=== PATIENT | male | born 1985 | race African-American/Black ===

== ENCOUNTER 2016-11-30 21:12 | Emergency (ER) | payer OTHER ==
[2016-11-30 21:19] VITALS: RESP 22
[2016-11-30] MEDS ORDERED: ACETAMINOPHEN TAB 500 MG TAB PO STA (21:29)
[2016-11-30] MEDS ORDERED: IBUPROFEN 600 MG TAB PO STA (21:29)
[2016-11-30] MEDS ORDERED: IPRATROPIUM-ALBUTEROL 3 ML NEB INHALATION STA (21:29)
--- NOTE | 2016-11-30 21:31 | ED ---
General Adult HPI - General Chief complaint: Upper Respiratory Infection Stated complaint: NILTON,cough Time Seen by Provider: 11/30/16 21:15 Source: patient, RN notes reviewed Mode of arrival: ambulatory Limitations: no limitations - History of Present Illness Initial comments: This is a 31-year-old male who presents emergency Department complaining of body aches everywhere. Patient states she's also had a fever but not taken any Motrin or Tylenol. Patient states she's had this for 2 days. Patient states he also has had a cough but he is a smoker. Patient denies any shortness of breath or difficulty breathing. Patient denies any chills. Patient denies any chest pain or palpitations. Patient denies abdominal pain patient denies nausea or vomiting. Patient states had one episode of diarrhea yesterday but none today and is having normal bowel movements today. Patient has a mild headache but there is no numbness or weakness eyes any lightheadedness dizziness or near-syncopal episode. Patient states he did not get a flu shot this year. - Related Data Home Medications Medication Instructions Recorded Confirmed Beclomethasone Dipropionate [Qvar 2 puff INHALATION RT-BID 07/25/16 11/30/16 80 mcg] Albuterol Inhaler [Ventolin Hfa 1 - 2 puff INHALATION RT-Q6H PRN 09/08/16 Inhaler] Ipratropium-Albuterol Nebulize 3 ml INHALATION RT-Q6H PRN 09/08/16 11/30/16 [Duoneb 0.5 mg-3 mg/3 ml Soln] Flunisolide [Aerospan] 1 puff INHALATION RT-DAILY 11/30/16 11/30/16 Fluticasone/Salmeterol [Advair 1 puff INHALATION RT-BID 11/30/16 11/30/16 250-50 Diskus] Previous Rx's Medication Instructions Recorded Albuterol Inhaler [Ventolin Hfa 1 - 2 puff INHALATION Q6HR PRN #2 11/30/16 Inhaler] puff Azithromycin [Zithromax Tri-Jesus] 500 mg PO DAILY #3 tab 11/30/16 Allergies Allergy/AdvReac Type Severity Reaction Status Date / Time latex Allergy Swelling Verified 11/30/16 21:38 Sulfa (Sulfonamide Allergy Unknown Verified 11/30/16 21:38 Antibiotics) Review of Systems ROS Statement: Those systems with pertinent positive or pertinent negative responses have been documented in the HPI. ROS Other: All systems not noted in ROS Statement are negative. 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 Patient is nontoxic and well- hydrated and is in mild distress. ENT: Neck is soft and supple. No significant lymphadenopathy is noted. Oropharynx is clear. Moist mucous membranes. Neck has full range of motion without eliciting any pain. EYES: The sclera were anicteric and conjunctiva were pink and moist. Extraocular movements were intact and pupils were equal round and reactive to light. Eyelids were unremarkable. PULMONARY: Unlabored respirations. Good breath sounds bilaterally. Patient has expiratory wheezing. CARDIOVASCULAR: There is a regular rate and rhythm without any murmurs gallops or rubs. ABDOMEN: Soft and nontender with normal bowel sounds. No palpable organomegaly was noted. There is no palpable pulsatile mass. SKIN: Skin is clear with no lesions or rashes and otherwise unremarkable. NEUROLOGIC: Patient is alert and oriented x3. Cranial nerves II through XII are grossly intact. Motor and sensory are also intact. Normal speech, volume and content. Symmetrical smile. MUSCULOSKELETAL: Normal extremities with adequate strength and full range of motion. No lower extremity swelling or edema. No calf tenderness. LYMPHATICS: No significant lymphadenopathy is noted PSYCHIATRIC: Normal psychiatric evaluation. Normal interpersonal interactions appears functionally intact in deals appropriately with others. No signs of depression. No signs of anxiety. Limitations: no limitations Course Vital Signs 11/30/16 11/30/16 11/30/16 21:15 21:53 22:11 Temperature 101 F H Pulse Rate 122 H 120 H 118 H Respiratory 22 Rate Blood Pressure 136/74 O2 Sat by Pulse 98 Oximetry Medical Decision Making - Medical Decision Making I went back into the room and reexamined the patient he no longer was wheezing and felt as though he was breathing better. Patient states he aches and just started to subside. I gave the patient a gram or Rocephin IM. Chest x-ray showed a right perihilar infiltrate. - Lab Data Lab Results 11/30/16 Range/Units 21:29 Influenza Type A RNA Not Detected (Not Detectd) Influenza Type B (PCR) Not Detected (Not Detectd) Disposition Clinical Impression: Pneumonia Disposition: HOME SELF-CARE Condition: Good Instructions: Bacterial Pneumonia (ED) Additional Instructions: Patient should stop smoking. Patient should take Zithromax as prescribed. Patient should take albuterol inhaler as prescribed. Prescriptions: Albuterol Inhaler [Ventolin Hfa Inhaler] 1 - 2 puff INHALATION Q6HR PRN #2 puff PRN Reason: Difficulty breathing Azithromycin [Zithromax Tri-Jesus] 500 mg PO DAILY #3 tab Referrals: Lincoln Madden Jr, DO [Primary Care Provider] - 1-2 days Time of Disposition: 22:26
--- NOTE | 2016-11-30 22:21 | XR ---
EXAMINATION TYPE: XR chest 2V DATE OF EXAM: 11/30/2016 10:15 PM COMPARISON: 09/08/2016 HISTORY: Difficulty breathing, weakness, pain everywhere. TECHNIQUE: Frontal and lateral views of the chest are obtained. FINDINGS: There is increased opacity in the right infrahilar area when compared to previous study and is suspic ious for active infiltrates or pneumonia changes. There is peribronchial cuffing bilaterally with possible chronic bronchitis changes. No pneumothorax or pleural effusion is noted. The cardiac silhouette size is within normal limits. The osseous structures are intact. IMPRESSION: 1. Suspected mild active infiltrates in the right infrahilar area. 2. Chronic bronchitis changes.
[2016-11-30] MEDS ORDERED: cefTRIAXone 1,000 MG VIAL (IM USE) IM STA (22:25)
[2016-11-30] MEDS ORDERED: IBUPROFEN 600 MG STARTER PACK 4 TAB BTL PO STA (22:27)
[2016-11-30 22:43] VITALS: BP 141/80; PULSE 105; TEMP 99.7
== END 2016-11-30 22:43 | disposition home or self-care (01) ==
LOC: EC 21:12
DX: J15.9 Unspecified bacterial pneumonia (principal); R19.7 Diarrhea, unspecified; R51 Headache; J45.909 Unspecified asthma, uncomplicated; F17.200 Nicotine dependence, unspecified, uncomplicated; Z79.51 Long term (current) use of inhaled steroids; Z79.899 Other long term (current) drug therapy; Z91.040 Latex allergy status; Z88.2 Allergy status to sulfonamides
CPT/HCPCS: 94640; 87502; 71020; 99284; 96372; J0696

== ENCOUNTER 2016-12-01 23:48 | Emergency (ER) | payer OTHER ==
--- NOTE | 2016-12-02 00:09 | ED ---
General Adult HPI - General Chief complaint: Fever Stated complaint: FEVER Time Seen by Provider: 12/01/16 23:54 Source: patient, RN notes reviewed Mode of arrival: EMS Limitations: no limitations - History of Present Illness Initial comments: This is a 31-year-old male presents with body aches. Patient was diagnosed yesterday in the [facility] with pneumonia. Patient was put on azithromycin for this. Patient has been taking the antibiotic as prescribed. Patient has been taking Tylenol and Motrin for fever. Patient states he is still having body aches so he wanted to be seen. Patient states he feels short of breath. Patient admits to being a smoker. Patient denies any chest pain, abdominal pain, nausea/ vomiting/diarrhea, back pain, numbness, tingling, hematuria, headache, or visual changes, or any other complaints. - Related Data Home Medications Medication Instructions Recorded Confirmed Beclomethasone Dipropionate [Qvar 2 puff INHALATION RT-BID 07/25/16 12/01/16 80 mcg] Ipratropium-Albuterol Nebulize 3 ml INHALATION RT-Q6H PRN 09/08/16 12/01/16 [Duoneb 0.5 mg-3 mg/3 ml Soln] Flunisolide [Aerospan] 1 puff INHALATION RT-DAILY 11/30/16 12/01/16 Fluticasone/Salmeterol [Advair 1 puff INHALATION RT-BID 11/30/16 12/01/16 250-50 Diskus] Previous Rx's Medication Instructions Recorded Albuterol Inhaler [Ventolin Hfa 1 - 2 puff INHALATION Q6HR PRN #2 11/30/16 Inhaler] puff Azithromycin [Zithromax Tri-Jesus] 500 mg PO DAILY #3 tab 11/30/16 Acetaminophen Tab [Tylenol Tab] 500 mg PO Q6H 7 Days 12/02/16 Ibuprofen [Motrin] 400 mg PO Q4H 7 Days 12/02/16 predniSONE 20 mg PO DAILY 3 Days 12/02/16 Allergies Allergy/AdvReac Type Severity Reaction Status Date / Time latex Allergy Swelling Verified 12/01/16 23:54 methylphenidate Allergy Unknown Verified 12/01/16 23:54 [From Ritalin] Sulfa (Sulfonamide Allergy Unknown Verified 12/01/16 23:54 Antibiotics) Review of Systems ROS Statement: Those systems with pertinent positive or pertinent negative responses have been documented in the HPI. ROS Other: All systems not noted in ROS Statement are negative. 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 Eye: Pupils are equal, round and reactive to light, extra-ocular movements are intact. No nystagmus. There is normal conjunctiva bilaterally. No signs of icterus. Ears: TMs pink and pearly with intact cone of light bilaterally. Normal external ear canals Nose: Nasal turbinates pink and moist Mouth and throat: There are moist mucous membranes and no oral lesions. Neck: The neck is supple, there is no tenderness or JVD. No meningismus. Cardiovascular: There is a regular rate and rhythm. No murmur, rub or gallop is appreciated. Respiratory: Lungs with wheezes present bilaterally, respirations are non- labored, breath sounds are equal. No stridor, rales, or rhonchi. Gastrointestinal: Soft, non-distended, non-tender abdomen without masses or organomegaly noted. There is no rebound or guarding present. Bowel sounds are unremarkable. Musculoskeletal: Normal ROM, no tenderness. Strength 5/5. Sensation intact. Radial Pulses equal bilaterally 2+. Neurological: A&O x 3. CN II-XII intact, There are no obvious motor or sensory deficits. Coordination appears grossly intact. Speech is normal. Skin: Skin is warm and dry and no rashes or lesions are noted. Psychiatric: Cooperative, appropriate mood & affect, normal judgment. Limitations: no limitations Course Vital Signs 12/01/16 12/02/16 12/02/16 23:51 00:21 00:31 Temperature 103.2 F H Pulse Rate 117 H 112 H 104 H Respiratory 18 Rate Blood Pressure 125/58 O2 Sat by Pulse 98 Oximetry 12/02/16 01:04 Temperature 102.1 F H Pulse Rate 90 Respiratory 16 Rate Blood Pressure 120/80 O2 Sat by Pulse 95 Oximetry Medical Decision Making - Medical Decision Making This is a 31-year-old male who presents with body aches after being diagnosed with pneumonia yesterday. Patient is currently on antibiotics for this. Patient has been taking Tylenol and/or Motrin. On physical exam Lungs with wheezes present bilaterally, respirations are non-labored, breath sounds are equal. No stridor, rales, or rhonchi. Patient has a fever today in the [facility]. Patient will be given a DuoNeb treatment and a dose of Tylenol in the [facility] today. Patient states he feels that he can breathe much better after his breathing treatments. Lung sounds were clear after his breathing treatment bilaterally. I rechecked the patient's temperature was decreased to 101.9. I discussed with patient the importance of taking Tylenol and Motrin to control fever and pain symptoms. Discussed the patient will be sent home on course of steroids. Patient states he has plenty of albuterol treatments at home. Patient was given a dose of Rocephin before discharge. I discussed the patient should follow-up with his primary care physician tomorrow or return to the [facility] for any worsening symptoms or for any further concerns. Patient was receptive to this and patient will be discharged home. Patient was given a prescription for Tylenol and Motrin. Patient will be discharged home. Disposition Clinical Impression: Body aches, Pneumonia Disposition: HOME SELF-CARE Condition: Good Instructions: Community Acquired Pneumonia (ED) Additional Instructions: Please continue and finish the entire course of antibiotics. Please use steroid as prescribed. Please continue Tylenol and/or Motrin every 4-6 hours for pain and fever. Please follow-up with your primary care physician tomorrow or return to the [facility] for any worsening symptoms or for any further concerns. Prescriptions: Acetaminophen Tab [Tylenol Tab] 500 mg PO Q6H 7 Days Ibuprofen [Motrin] 400 mg PO Q4H 7 Days predniSONE 20 mg PO DAILY 3 Days Referrals: Lincoln Madden Jr, DO [Primary Care Provider] - 1-2 days
[2016-12-02] MEDS: ACETAMINOPHEN TAB 500 MG TAB PO STA (00:12)
[2016-12-02] MEDS: SODIUM CHLORIDE 0.9% 500 ML IV ONE (00:16)
[2016-12-02] MEDS: IPRATROPIUM-ALBUTEROL 3 ML NEB INHALATION STA (00:21)
[2016-12-02 01:04] VITALS: BP 120/80; PULSE 90; RESP 16; TEMP 102.1
[2016-12-02] MEDS: MORPHINE SULFATE 2 MG/ML SYRINGE IV STA (01:21)
== END 2016-12-02 01:38 | disposition home or self-care (01) ==
LOC: EC 23:48
DX: J18.9 Pneumonia, unspecified organism (principal); Z79.51 Long term (current) use of inhaled steroids; Z91.040 Latex allergy status; Z88.2 Allergy status to sulfonamides; Z88.8 Allergy status to other drugs, medicaments and biological substances; F17.200 Nicotine dependence, unspecified, uncomplicated; J45.909 Unspecified asthma, uncomplicated
CPT/HCPCS: 94640; 96361; 96365; 96375; 99284

== ENCOUNTER 2016-12-09 09:40 | Emergency (ER) | payer OTHER ==
[2016-12-09] MEDS ORDERED: methylPREDNISolone SOD SUCCI 125 MG/2 ML VIAL IV STA (09:41)
[2016-12-09] MEDS ORDERED: MAGNESIUM SULFATE-D5W PMX 1 GM in DEXTROSE/WATER 1 100ML.BAG IVPB STA (09:41)
[2016-12-09] MEDS ORDERED: SODIUM CHLORIDE 0.9% 1,000 ML IV STA (09:41)
--- NOTE | 2016-12-09 09:45 | ED ---
SOB HPI - General Stated Complaint: Difficulty Breathing Time Seen by Provider: 12/09/16 09:40 Source: patient, EMS, RN notes reviewed Mode of arrival: EMS - History of Present Illness Initial Comments: This is a 31-year-old male with a history of smoking and asthma but no other medical problems who was apparently cleaning using bleach and ammonia prior to admission he became very short of breath EMS was called. He was given an updraft in route but still remains very dyspneic. He denies any overt chest pain fevers chills or sweats is very short of breath at this time he was partially decond by paramedics. MD Complaint: shortness of breath, cough - Related Data Home Medications Medication Instructions Recorded Confirmed Beclomethasone Dipropionate [Qvar 2 puff INHALATION RT-BID 07/25/16 12/09/16 80 mcg] Ipratropium-Albuterol Nebulize 3 ml INHALATION RT-Q6H PRN 09/08/16 12/09/16 [Duoneb 0.5 mg-3 mg/3 ml Soln] Flunisolide [Aerospan] 1 puff INHALATION RT-DAILY 11/30/16 12/09/16 Fluticasone/Salmeterol [Advair 1 puff INHALATION RT-BID 11/30/16 12/09/16 250-50 Diskus] Previous Rx's Medication Instructions Recorded Albuterol Inhaler [Ventolin Hfa 1 - 2 puff INHALATION Q6HR PRN #2 11/30/16 Inhaler] puff Acetaminophen Tab [Tylenol Tab] 500 mg PO Q6H 7 Days 12/02/16 Ibuprofen [Motrin] 400 mg PO Q4H 7 Days 12/02/16 Azithromycin [Zithromax Z-pack] 250 mg PO DIRECTED #6 tab 12/09/16 Ipratropium-Albuterol Nebulize 3 ml INHALATION QID #120 neb 12/09/16 [Duoneb 0.5 mg-3 mg/3 ml Soln] Ipratropium/Albuterol Sulfate 1 puff INHALATION QID #1 inhaler 12/09/16 [Combivent Respimat Inhaler] predniSONE 20 mg PO BID #10 tab 12/09/16 Allergies Allergy/AdvReac Type Severity Reaction Status Date / Time latex Allergy Swelling Verified 12/09/16 09:59 methylphenidate Allergy Unknown Verified 12/09/16 09:59 [From Ritalin] Sulfa (Sulfonamide Allergy Unknown Verified 12/09/16 09:59 Antibiotics) Review of Systems ROS Statement: Those systems with pertinent positive or pertinent negative responses have been documented in the HPI. ROS Other: All systems not noted in ROS Statement are negative. Past Medical History Past Medical History: Asthma Additional Past Medical History / Comment(s): multiple personality disorder History of Any Multi-Drug Resistant Organisms: None Reported Past Surgical History: Orthopedic Surgery Past Psychological History: ADD/ADHD, Anxiety, Bipolar, Schizoaffective Disorder Smoking Status: Current every day smoker Past Alcohol Use History: Occasional Past Drug Use History: Marijuana General Exam General appearance: alert, anxious, in distress Head exam: Present: atraumatic, normocephalic, normal inspection Eye exam: Present: normal appearance, PERRL, EOMI. Absent: scleral icterus, conjunctival injection, periorbital swelling ENT exam: Present: mucous membranes dry Neck exam: Present: normal inspection. Absent: tenderness, meningismus, lymphadenopathy Respiratory exam: Present: wheezes, accessory muscle use, decreased breath sounds. Absent: respiratory distress, rales, rhonchi, stridor Cardiovascular Exam: Present: normal rhythm, tachycardia, normal heart sounds. Absent: systolic murmur, diastolic murmur, rubs, gallop, clicks GI/Abdominal exam: Present: soft, normal bowel sounds. Absent: distended, tenderness, guarding, rebound, rigid Extremities exam: Present: normal inspection, full ROM, normal capillary refill. Absent: tenderness, pedal edema, joint swelling, calf tenderness Back exam: Present: normal inspection Neurological exam: Present: alert, oriented X3, CN II-XII intact Psychiatric exam: Present: normal affect, normal mood Skin exam: Present: warm, dry, intact, normal color. Absent: rash Course Vital Signs 12/09/16 12/09/16 12/09/16 09:50 10:02 10:05 Temperature 97.8 F Pulse Rate 85 87 90 Respiratory 26 H 28 H Rate Blood Pressure 145/64 O2 Sat by Pulse 98 Oximetry 12/09/16 12/09/16 12/09/16 10:20 10:45 10:58 Temperature Pulse Rate 90 90 91 Respiratory 20 Rate Blood Pressure 138/70 O2 Sat by Pulse 98 Oximetry 12/09/16 12/09/16 11:40 12:03 Temperature Pulse Rate 90 81 Respiratory 18 Rate Blood Pressure 127/69 O2 Sat by Pulse Oximetry - Reevaluation(s) Reevaluation #1: 12/09/16 11:02 Patient states that he is feeling much improved the continuous nebulizers was just discontinued the patient is however still wheezing somewhat. He does state this is been going on for several days like this however. A repeat unit dose DuoNeb has been ordered. Chest x-ray is pending. Reevaluation #2: 12/09/16 12:04 Patient is feeling improved he is still pending a repeat updraft. He states he just finished antibiotics for a pneumonia Reevaluation #3: 12/09/16 12:07 She did discuss the risks of smoking and smoke cessation and the benefits thereof. This conversation lasted about 3.5 minutes. Medical Decision Making - Medical Decision Making I did discuss the findings with the patient is feeling much improved he states that he ran out of his nebulizer/DuoNeb medication as well as an inhaler due to insurance difficulty. I will rewrite for this for him. We discharged on oral steroids he'll be given an antibiotic to be taken if symptoms return. - Lab Data Result diagrams: 12/09/16 09:50 12/09/16 09:50 Lab Results 12/09/16 12/09/16 12/09/16 Range/Units 09:50 09:50 09:50 WBC 12.0 H (3.8-10.6) k/uL RBC 5.11 (4.30-5.90) m/uL Hgb 15.8 (13.0-17.5) gm/dL Hct 47.1 (39.0-53.0) % MCV 92.2 (80.0-100.0) fL MCH 30.9 (25.0-35.0) pg MCHC 33.6 (31.0-37.0) g/dL RDW 13.5 (11.5-15.5) % Plt Count 402 (150-450) k/uL Neutrophils % 61 % Lymphocytes % 27 % Monocytes % 7 % Eosinophils % 2 % Basophils % 1 % Neutrophils # 7.3 (1.3-7.7) k/uL Lymphocytes # 3.2 (1.0-4.8) k/uL Monocytes # 0.8 (0-1.0) k/uL Eosinophils # 0.3 (0-0.7) k/uL Basophils # 0.1 (0-0.2) k/uL PT (9.0-12.0) sec INR (<1.1) APTT (22.0-30.0) sec Sodium 144 (137-145) mmol/L Potassium 4.1 (3.5-5.1) mmol/L Chloride 107 (98-107) mmol/L Carbon Dioxide 27 (22-30) mmol/L Anion Gap 10 mmol/L BUN 14 (9-20) mg/dL Creatinine 0.90 (0.66-1.25) mg/dL Est GFR (MDRD) Af Amer >60 (>60 ml/min/1.73 sqM) Est GFR (MDRD) Non-Af >60 (>60 ml/min/1.73 sqM) Glucose 90 (74-99) mg/dL Calcium 9.1 (8.4-10.2) mg/dL Magnesium 2.1 (1.6-2.3) mg/dL Total Bilirubin 0.6 (0.2-1.3) mg/dL AST 52 (17-59) U/L ALT 68 (21-72) U/L Alkaline Phosphatase 51 (38-126) U/L Total Creatine Kinase 430 H (55-170) U/L CK-MB (CK-2) 3.8 H* (0.0-2.4) ng/mL CK-MB (CK-2) Rel Index 0.9 Troponin I <0.012 (0.000-0.034) ng/mL NT-Pro-B Natriuret Pep pg/mL Total Protein 7.9 (6.3-8.2) g/dL Albumin 4.5 (3.5-5.0) g/dL 12/09/16 12/09/16 Range/Units 09:50 09:50 WBC (3.8-10.6) k/uL RBC (4.30-5.90) m/uL Hgb (13.0-17.5) gm/dL Hct (39.0-53.0) % MCV (80.0-100.0) fL MCH (25.0-35.0) pg MCHC (31.0-37.0) g/dL RDW (11.5-15.5) % Plt Count (150-450) k/uL Neutrophils % % Lymphocytes % % Monocytes % % Eosinophils % % Basophils % % Neutrophils # (1.3-7.7) k/uL Lymphocytes # (1.0-4.8) k/uL Monocytes # (0-1.0) k/uL Eosinophils # (0-0.7) k/uL Basophils # (0-0.2) k/uL PT 10.8 (9.0-12.0) sec INR 1.1 (<1.1) APTT 20.1 L (22.0-30.0) sec Sodium (137-145) mmol/L Potassium (3.5-5.1) mmol/L Chloride (98-107) mmol/L Carbon Dioxide (22-30) mmol/L Anion Gap mmol/L BUN (9-20) mg/dL Creatinine (0.66-1.25) mg/dL Est GFR (MDRD) Af Amer (>60 ml/min/1.73 sqM) Est GFR (MDRD) Non-Af (>60 ml/min/1.73 sqM) Glucose (74-99) mg/dL Calcium (8.4-10.2) mg/dL Magnesium (1.6-2.3) mg/dL Total Bilirubin (0.2-1.3) mg/dL AST (17-59) U/L ALT (21-72) U/L Alkaline Phosphatase (38-126) U/L Total Creatine Kinase (55-170) U/L CK-MB (CK-2) (0.0-2.4) ng/mL CK-MB (CK-2) Rel Index Troponin I (0.000-0.034) ng/mL NT-Pro-B Natriuret Pep 117 pg/mL Total Protein (6.3-8.2) g/dL Albumin (3.5-5.0) g/dL - EKG Data -: EKG Interpreted by Me EKG shows normal: sinus rhythm (Sinus rhythm with a rate of 73. Interval 180 QRS duration 1:30 QT/QTC of 376/[address]-T wave changes some artifact is present) - Radiology Data Radiology results: report reviewed (I did review the imaging and report is evidence of a right perihilar infiltrate), image reviewed Disposition Clinical Impression: Acute bronchospasm, Asthma exacerbation, Inhalation of cleaning agent, Smoking Disposition: HOME SELF-CARE Condition: Good Instructions: Bronchospasm (ED), Asthma (ED), Pneumonia (ED) Prescriptions: Azithromycin [Zithromax Z-pack] 250 mg PO DIRECTED #6 tab Ipratropium-Albuterol Nebulize [Duoneb 0.5 mg-3 mg/3 ml Soln] 3 ml INHALATION QID #120 neb Ipratropium/Albuterol Sulfate [Combivent Respimat Inhaler] 1 puff INHALATION QID #1 inhaler predniSONE 20 mg PO BID #10 tab
[2016-12-09] MEDS ORDERED: ALBUTEROL NEBULIZED 2.5 MG/3 ML INHALATION STA (09:48)
[2016-12-09] MEDS ORDERED: IPRATROPIUM 0.5 MG/2.5 ML NEBU INHALATION STA (09:48)
[2016-12-09 10:19] LABS: Basophils # (A) 0.1 k/uL (0-0.2); Basophils % (A) 1 %; CH 31.3; CHCM 34.1; Eosinophils # (A) 0.3 k/uL (0-0.7); Eosinophils % (A) 2 %; HCT 47.1 % (39.0-53.0); HDW 2.77; HGB 15.8 gm/dL (13.0-17.5); Luc # (Auto) 0.31; Luc % (Auto) 3; Lymphocytes # (A) 3.2 k/uL (1.0-4.8); Lymphocytes % (A) 27 %; MCH 30.9 pg (25.0-35.0); MCHC 33.6 g/dL (31.0-37.0); MCV 92.2 fL (80.0-100.0); Mean Platelet Volume 7.9; Monocytes # (A) 0.8 k/uL (0-1.0); Monocytes % (A) 7 %; Neutrophils # (A) 7.3 k/uL (1.3-7.7); Neutrophils % (A) 61 %; RBC 5.11 m/uL (4.30-5.90); RDW 13.5 % (11.5-15.5); WBC (Perox) 11.84
[2016-12-09 10:31] LABS: Creatine Kinase 430 U/L (55-170)
[2016-12-09 10:33] LABS: ALT 68 U/L (21-72); AST 52 U/L (17-59); Alkaline Phosphatase 51 U/L (38-126); Anion Gap 10 mmol/L; Blood Urea Nitrogen 14 mg/dL (9-20); Calcium 9.1 mg/dL (8.4-10.2); Carbon Dioxide 27 mmol/L (22-30); Chloride 107 mmol/L (98-107); Glucose 90 mg/dL (74-99); Magnesium 2.1 mg/dL (1.6-2.3); Non-African American GFR(MDRD) >60 (>60 ml/min/1.73 sqM); Sodium 144 mmol/L (137-145); Total Bilirubin 0.6 mg/dL (0.2-1.3); Total Protein 7.9 g/dL (6.3-8.2)
[2016-12-09 10:36] LABS: INR 1.1 (<1.1); Potassium 4.1 mmol/L (3.5-5.1); Prothrombin Time 10.8 sec (9.0-12.0)
[2016-12-09 10:43] LABS: Troponin I <0.012 ng/mL (0.000-0.034)
[2016-12-09 10:46] LABS: Creatine Kinase MB 3.8 ng/mL (0.0-2.4)
[2016-12-09] MEDS ORDERED: IPRATROPIUM-ALBUTEROL 3 ML NEB INHALATION STA (11:01)
[2016-12-09 11:09] LABS: Partial Thromboplastin Time 20.1 sec (22.0-30.0)
--- NOTE | 2016-12-09 11:46 | XR ---
EXAMINATION TYPE: XR chest 2V DATE OF EXAM: 12/09/2016 11:15 AM COMPARISON: 11/30/2016 INDICATION: Difficulty breathing TECHNIQUE: Frontal and lateral views of the chest are obtained. FINDINGS: The heart size is normal. The pulmonary vasculature is normal. There may be some slight increase right lower lobe infiltrate medial. Correlate for atelectasis or ea rly pneumonia. Follow-up can be performed as clinically indicated. IMPRESSION: 1. Minimal right infrahilar infiltrate may be present. Clinical correlation and follow-up can be perf ormed.
[2016-12-09 12:47] VITALS: BP 127/78; PULSE 94; RESP 22; TEMP 98
== END 2016-12-09 12:20 | disposition home or self-care (01) ==
LOC: EC 09:40
DX: J45.901 Unspecified asthma with (acute) exacerbation (principal); F17.200 Nicotine dependence, unspecified, uncomplicated; Z91.040 Latex allergy status; Z88.2 Allergy status to sulfonamides; Z88.8 Allergy status to other drugs, medicaments and biological substances; Z79.51 Long term (current) use of inhaled steroids; Z79.899 Other long term (current) drug therapy; Z79.1 Long term (current) use of non-steroidal anti-inflammatories (NSAID)
CPT/HCPCS: 99285; 96365; 96375; 96361; 36415; 94640; 94644; 93005; 83880; 80053; 82550; 82553; 83735; 84484; 85025; 85610; 85730; 71020; J2930; J3475

== ENCOUNTER 2017-01-05 00:30 | Emergency (ER) | payer OTHER ==
[2017-01-05] MEDS ORDERED: IPRATROPIUM-ALBUTEROL 3 ML NEB INHALATION STA (01:02)
[2017-01-05] MEDS ORDERED: predniSONE 20 MG TAB PO STA (01:03)
--- NOTE | 2017-01-05 01:06 | ED ---
General Adult HPI - General Chief complaint: Shortness of Breath Stated complaint: Asthma Attack Time Seen by Provider: 01/05/17 00:38 Source: patient, RN notes reviewed Mode of arrival: ambulatory Limitations: no limitations - History of Present Illness Initial comments: This is a 31-year-old male who presents with an exacerbation of asthma symptoms. Patient states this started last night. Patient states he has old albuterol treatments but has run out of his other asthma medications. Patient denies any cough, congestion, fever/chills, otalgia or sore throat. Patient states he is unable to see his regular doctor for refills on his asthma medication due to not having a ride. Patient denies any recent fever, chills, chest pain, abdominal pain, nausea/vomiting/diarrhea, back pain, numbness, tingling, hematuria, headache, or visual changes, or any other complaints. - Related Data Previous Rx's Medication Instructions Recorded Albuterol Inhaler [Ventolin Hfa 1 - 2 puff INHALATION Q6HR 7 Days 01/05/17 Inhaler] Ipratropium-Albuterol Nebulize 3 ml INHALATION QID 7 Days 01/05/17 [Duoneb 0.5 mg-3 mg/3 ml Soln] predniSONE 20 mg PO DAILY 5 Days 01/05/17 Allergies Allergy/AdvReac Type Severity Reaction Status Date / Time latex Allergy Swelling Verified 01/05/17 00:36 methylphenidate Allergy Unknown Verified 01/05/17 00:36 [From Ritalin] Sulfa (Sulfonamide Allergy Unknown Verified 01/05/17 00:36 Antibiotics) Review of Systems ROS Statement: Those systems with pertinent positive or pertinent negative responses have been documented in the HPI. ROS Other: All systems not noted in ROS Statement are negative. 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 Eye: Pupils are equal, round and reactive to light, extra-ocular movements are intact. No nystagmus. There is normal conjunctiva bilaterally. No signs of icterus. Ears: TMs pink and pearly with intact cone of light bilaterally. Normal external ear canals Nose: Nasal turbinates pink and moist Mouth and throat: There are moist mucous membranes and no oral lesions. Neck: The neck is supple, there is no tenderness or JVD. Cardiovascular: There is a regular rate and rhythm. No murmur, rub or gallop is appreciated. Respiratory: Lungs with bilateral wheezing throughout, respirations are non- labored, breath sounds are equal. No stridor, rales, or rhonchi. Musculoskeletal: Normal ROM, no tenderness. Strength 5/5. Sensation intact. Radial pulses equal bilaterally 2+. Neurological: A&O x 3. CN II-XII intact, There are no obvious motor or sensory deficits. Coordination appears grossly intact. Speech is normal. Skin: Skin is warm and dry and no rashes or lesions are noted. Psychiatric: Cooperative, appropriate mood & affect, normal judgment. Limitations: no limitations Course Vital Signs 01/05/17 01/05/17 01/05/17 00:33 01:27 01:34 Temperature 97.7 F Pulse Rate 110 H 105 H 105 H Respiratory 22 Rate Blood Pressure 124/66 O2 Sat by Pulse 97 Oximetry 01/05/17 01:58 Temperature 97.3 F L Pulse Rate 73 Respiratory 18 Rate Blood Pressure 121/83 O2 Sat by Pulse 100 Oximetry Medical Decision Making - Medical Decision Making This s a 31-year-old male presents with exacerbation of asthma. On physical exam patient is afebrile in the EC. Lungs with bilateral wheezes throughout. Patient was given a DuoNeb and oral prednisone in the EC. Chest x-ray was done and reviewed showing: No acute processes seen within the chest or source of the patient's chest pain detected. Reported by Dr. Ascencio. Patient states he is feeling much better here after his breathing treatment and lungs were clear to auscultation after breathing treatment. Some very faint wheezes still present to the lower lungs. Patient states he is ready for discharge. Patient will be given a prescription for DuoNeb treatments and albuterol inhaler. Patient also be sent home with a prescription for prednisone. Discussed patient is to follow -up with his primary care physician in one to 2 days or return to the EC for any worsening symptoms or for any further concerns. Patient was receptive to this plan and patient was discharged home. Disposition Clinical Impression: Exacerbation of asthma Disposition: HOME SELF-CARE Condition: Good Instructions: Asthma (ED) Additional Instructions: Please use prednisone as prescribed. Please continue DuoNeb treatments and use albuterol inhaler as needed. Please follow-up with her primary care physician in one to 2 days or return to the EC for any worsening symptoms or for any further concerns. Prescriptions: Albuterol Inhaler [Ventolin Hfa Inhaler] 1 - 2 puff INHALATION Q6HR 7 Days Ipratropium-Albuterol Nebulize [Duoneb 0.5 mg-3 mg/3 ml Soln] 3 ml INHALATION QID 7 Days predniSONE 20 mg PO DAILY 5 Days Referrals: Lincoln Madden Jr, [Primary Care Provider] - 1-2 days Time of Disposition: 02:04
--- NOTE | 2017-01-05 01:20 | XR ---
EXAM: XR Chest, 2 Views. CLINICAL HISTORY: Reason: Pain TECHNIQUE: Frontal and lateral views of the chest. COMPARISON: No relevant prior studies available. FINDINGS: Lungs: Unremarkable. No consolidation. Pleural spaces: Unremarkable. No pneumothorax. Heart: Unremarkable. No cardiomegaly. Mediastinum: Unremarkable. Bones: Minor degenerative changes in the lower thoracic spine. No acute fracture. IMPRESSION: No acute process seen within the chest or source of the patient's chest pain detected.
[2017-01-05] MEDS ORDERED: IBUPROFEN 400 MG TAB PO STA (01:27)
[2017-01-05 01:58] VITALS: BP 121/83; PULSE 73; RESP 18; TEMP 97.3
== END 2017-01-05 02:07 | disposition home or self-care (01) ==
LOC: EC 00:30
DX: J45.901 Unspecified asthma with (acute) exacerbation (principal); F17.200 Nicotine dependence, unspecified, uncomplicated; Z88.2 Allergy status to sulfonamides; Z91.040 Latex allergy status; Z88.8 Allergy status to other drugs, medicaments and biological substances
CPT/HCPCS: 94640; 71020; 99285; J7512

== ENCOUNTER 2017-04-05 02:11 | Emergency (ER) | payer OTHER ==
[2017-04-05 02:18] VITALS: RESP 20; TEMP 97.5
[2017-04-05] MEDS ORDERED: IPRATROPIUM-ALBUTEROL 3 ML NEB INHALATION STA (02:28)
[2017-04-05] MEDS ORDERED: methylPREDNISolone SOD SUCCI 125 MG/2 ML VIAL IV STA (02:28)
[2017-04-05 02:55] LABS: Basophils # (A) 0.2 k/uL (0-0.2); Basophils % (A) 1 %; CH 31.7; Eosinophils # (A) 0.5 k/uL (0-0.7); Eosinophils % (A) 3 %; HCT 45.6 % (39.0-53.0); HDW 2.46; HGB 15.8 gm/dL (13.0-17.5); Luc # (Auto) 0.32; Luc % (Auto) 2; Lymphocytes # (A) 5.1 k/uL (1.0-4.8); Lymphocytes % (A) 31 %; MCH 32.5 pg (25.0-35.0); MCHC 34.6 g/dL (31.0-37.0); MCV 93.8 fL (80.0-100.0); Mean Platelet Volume 6.7; Monocytes # (A) 0.9 k/uL (0-1.0); Monocytes % (A) 5 %; Neutrophils # (A) 9.9 k/uL (1.3-7.7); Neutrophils % (A) 59 %; RBC 4.86 m/uL (4.30-5.90); RDW 13.5 % (11.5-15.5); WBC 16.8 k/uL (3.8-10.6); WBC (Perox) 16.08
[2017-04-05 02:56] VITALS: PULSE 88
[2017-04-05 03:04] LABS: ALT 35 U/L (21-72); AST 26 U/L (17-59); Alkaline Phosphatase 61 U/L (38-126); Anion Gap 9 mmol/L; Blood Urea Nitrogen 12 mg/dL (9-20); Calcium 9.9 mg/dL (8.4-10.2); Carbon Dioxide 25 mmol/L (22-30); Chloride 107 mmol/L (98-107); Glucose 71 mg/dL (74-99); Non-African American GFR(MDRD) >60 (>60 ml/min/1.73 sqM); Potassium 3.8 mmol/L (3.5-5.1); Sodium 141 mmol/L (137-145); Total Bilirubin 0.3 mg/dL (0.2-1.3); Total Protein 6.9 g/dL (6.3-8.2)
--- NOTE | 2017-04-05 03:06 | ED ---
SOB HPI - General Chief Complaint: Shortness of Breath Stated Complaint: NILTON Time Seen by Provider: 04/05/17 02:22 Source: patient Mode of arrival: ambulatory Limitations: no limitations - History of Present Illness Initial Comments: 31 years old gentleman presents with the shortness of breath, he has a history of asthma, he ran out of some of his inhalers and albuterol is not effectively helping him with this shortness of breath also complained about some chest pain off and on for a few days and now taking a deep breaths makes the chest pain worse. He has been numb bring in a bunch of phlegm, denies any fever no chills. Denies any abdominal pain no frequency urgency dysuria - Related Data Previous Rx's Medication Instructions Recorded Albuterol Inhaler [Ventolin Hfa 1 - 2 puff INHALATION Q6HR 7 Days 01/05/17 Inhaler] Ipratropium-Albuterol Nebulize 3 ml INHALATION QID 7 Days 01/05/17 [Duoneb 0.5 mg-3 mg/3 ml Soln] predniSONE 20 mg PO DAILY 5 Days 01/05/17 Ipratropium Nebulized [Atrovent 0.5 mg INHALATION Q6HR #90 neb 04/05/17 Nebulized] Allergies Allergy/AdvReac Type Severity Reaction Status Date / Time latex Allergy Swelling Verified 04/05/17 02:18 methylphenidate Allergy Unknown Verified 04/05/17 02:18 [From Ritalin] Sulfa (Sulfonamide Allergy Unknown Verified 04/05/17 02:18 Antibiotics) Review of Systems ROS Statement: Those systems with pertinent positive or pertinent negative responses have been documented in the HPI. ROS Other: All systems not noted in ROS Statement are negative. 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 Eye: Pupils are equal, round and reactive to light, extra-ocular movements are intact; there is normal conjunctiva bilaterally. Ears, nose, mouth and throat: There are moist mucous membranes and no oral lesions. Neck: The neck is supple, there is no tenderness or JVD. Cardiovascular: There is a regular rate and rhythm. No murmur, rub or gallop is appreciated. Respiratory: To auscultation bilateral, noticed wheezing bilateral Gastrointestinal: Soft, non-distended, non-tender abdomen without masses or organomegaly noted. There is no rebound or guarding present. Bowel sounds are unremarkable. Back: There is no tenderness to palpation in the midline. There is no obvious deformity. Musculoskeletal: Normal ROM, no tenderness, There is no pedal edema. There is no calf tenderness or swelling. No cords were appreciated. Neurological: CN II-XII intact, Cranial nerves III through XII are intact. There are no obvious motor or sensory deficits. Coordination appears grossly intact. Speech is normal. Psychiatric: Cooperative, appropriate mood & affect, normal judgment. Limitations: no limitations Course Vital Signs 04/05/17 04/05/17 04/05/17 02:15 02:50 02:55 Temperature 97.5 F L Pulse Rate 88 84 88 Respiratory 20 Rate Blood Pressure 131/63 O2 Sat by Pulse 99 Oximetry EKG is a sinus rhythm with a first-degree AV block ventricular rate is 79 TN interval is 2:30 QRS duration is 106 QT/QTc is 376/431 review of this EKG does not reveal any ST elevation or ST depression Medical Decision Making - Lab Data Result diagrams: 04/05/17 02:35 04/05/17 02:35 Lab Results 04/05/17 04/05/17 04/05/17 Range/Units 02:35 02:35 02:35 WBC 16.8 H (3.8-10.6) k/uL RBC 4.86 (4.30-5.90) m/uL Hgb 15.8 (13.0-17.5) gm/dL Hct 45.6 (39.0-53.0) % MCV 93.8 (80.0-100.0) fL MCH 32.5 (25.0-35.0) pg MCHC 34.6 (31.0-37.0) g/dL RDW 13.5 (11.5-15.5) % Plt Count 312 (150-450) k/uL Neutrophils % 59 % Lymphocytes % 31 % Monocytes % 5 % Eosinophils % 3 % Basophils % 1 % Neutrophils # 9.9 H (1.3-7.7) k/uL Lymphocytes # 5.1 H (1.0-4.8) k/uL Monocytes # 0.9 (0-1.0) k/uL Eosinophils # 0.5 (0-0.7) k/uL Basophils # 0.2 (0-0.2) k/uL Manual Slide Review Performed D-Dimer (<0.60) mg/L FEU Sodium 141 (137-145) mmol/L Potassium 3.8 (3.5-5.1) mmol/L Chloride 107 (98-107) mmol/L Carbon Dioxide 25 (22-30) mmol/L Anion Gap 9 mmol/L BUN 12 (9-20) mg/dL Creatinine 0.90 (0.66-1.25) mg/dL Est GFR (MDRD) Af Amer >60 (>60 ml/min/1.73 sqM) Est GFR (MDRD) Non-Af >60 (>60 ml/min/1.73 sqM) Glucose 71 L (74-99) mg/dL Calcium 9.9 (8.4-10.2) mg/dL Total Bilirubin 0.3 (0.2-1.3) mg/dL AST 26 (17-59) U/L ALT 35 (21-72) U/L Alkaline Phosphatase 61 (38-126) U/L Total Creatine Kinase 391 H (55-170) U/L CK-MB (CK-2) 3.3 H* (0.0-2.4) ng/mL CK-MB (CK-2) Rel Index 0.8 Troponin I <0.012 (0.000-0.034) ng/mL Total Protein 6.9 (6.3-8.2) g/dL Albumin 4.4 (3.5-5.0) g/dL 04/05/17 Range/Units 02:35 WBC (3.8-10.6) k/uL RBC (4.30-5.90) m/uL Hgb (13.0-17.5) gm/dL Hct (39.0-53.0) % MCV (80.0-100.0) fL MCH (25.0-35.0) pg MCHC (31.0-37.0) g/dL RDW (11.5-15.5) % Plt Count (150-450) k/uL Neutrophils % % Lymphocytes % % Monocytes % % Eosinophils % % Basophils % % Neutrophils # (1.3-7.7) k/uL Lymphocytes # (1.0-4.8) k/uL Monocytes # (0-1.0) k/uL Eosinophils # (0-0.7) k/uL Basophils # (0-0.2) k/uL Manual Slide Review D-Dimer <0.17 (<0.60) mg/L FEU Sodium (137-145) mmol/L Potassium (3.5-5.1) mmol/L Chloride (98-107) mmol/L Carbon Dioxide (22-30) mmol/L Anion Gap mmol/L BUN (9-20) mg/dL Creatinine (0.66-1.25) mg/dL Est GFR (MDRD) Af Amer (>60 ml/min/1.73 sqM) Est GFR (MDRD) Non-Af (>60 ml/min/1.73 sqM) Glucose (74-99) mg/dL Calcium (8.4-10.2) mg/dL Total Bilirubin (0.2-1.3) mg/dL AST (17-59) U/L ALT (21-72) U/L Alkaline Phosphatase (38-126) U/L Total Creatine Kinase (55-170) U/L CK-MB (CK-2) (0.0-2.4) ng/mL CK-MB (CK-2) Rel Index Troponin I (0.000-0.034) ng/mL Total Protein (6.3-8.2) g/dL Albumin (3.5-5.0) g/dL Disposition Clinical Impression: Bronchitis, Asthma Disposition: HOME SELF-CARE Condition: Fair Instructions: Asthma (ED) Prescriptions: Ipratropium Nebulized [Atrovent Nebulized] 0.5 mg INHALATION Q6HR #90 neb Referrals: Lincoln Madden Jr, DO [Primary Care Provider] - 1-2 days
[2017-04-05] MEDS ORDERED: LEVOFLOXACIN 500 MG TAB PO STA (03:07)
[2017-04-05 03:10] LABS: Creatine Kinase 391 U/L (55-170)
[2017-04-05 03:23] LABS: Troponin I <0.012 ng/mL (0.000-0.034)
[2017-04-05 03:27] LABS: Creatine Kinase MB 3.3 ng/mL (0.0-2.4)
[2017-04-05 03:32] LABS: Manual Review Performed
--- NOTE | 2017-04-05 03:47 | XR ---
EXAM: XR Chest, 2 Views CLINICAL HISTORY: Reason: difficulty breathing TECHNIQUE: Frontal and lateral views of the chest. COMPARISON: Chest x-ray 01/05/2017. FINDINGS: Lungs: Peribronchial wall thickening. Similar right hilar/infrahilar prominence, which may be patient's baseline. Pleural space: Unremarkable. No pneumothorax. Heart: Unremarkable. No cardiomegaly. Mediastinum: See above. Bones/joints: Mild anterior wedging of lower thoracic vertebral bodies. IMPRESSION: 1. Peribronchial wall thickening. 2. Similar right hilar/infrahilar prominence, which may be patient's baseline.
[2017-04-05 04:40] VITALS: BP 136/74
== END 2017-04-05 04:40 | disposition home or self-care (01) ==
LOC: EC 02:11
DX: J45.909 Unspecified asthma, uncomplicated (principal); R07.9 Chest pain, unspecified; R20.0 Anesthesia of skin; F17.200 Nicotine dependence, unspecified, uncomplicated; Z91.040 Latex allergy status; Z88.2 Allergy status to sulfonamides; Z88.8 Allergy status to other drugs, medicaments and biological substances
CPT/HCPCS: 36415; 94640; 85379; 80053; 82550; 82553; 84484; 85025; 71020; 99285; 96374; J2930; 93005

== ENCOUNTER 2017-05-17 09:21 | Emergency (ER) | payer OTHER ==
[2017-05-17 09:26] VITALS: TEMP 98
[2017-05-17] MEDS ORDERED: IPRATROPIUM-ALBUTEROL 3 ML NEB INHALATION STA (09:35)
[2017-05-17] MEDS ORDERED: TOPICAL SKIN ADHESIVE 1 EACH AMP TOPICAL ONE (09:35)
--- NOTE | 2017-05-17 09:38 | ED ---
General Adult HPI - General Chief complaint: Wound/Laceration Stated complaint: laceration Time Seen by Provider: 05/17/17 09:31 Source: patient, RN notes reviewed Mode of arrival: ambulatory Limitations: no limitations - History of Present Illness Initial comments: Patient's 31-year-old male who presents emergency room today with multiple complaints. Patient does admit to a laceration to the left middle finger. He does admit that he hit it on a plastic tape causes laceration. He states his tetanus is within the last 7 years. He also admits to history of asthma states she's had some increased shortness of breath and congestion that began today. He states he did not take his breathing treatment prior to coming here in the emergency room. He denies any other complaints or associated symptoms. Patient denies any recent fever, chills, chest pain, back pain, abdominal pain, nausea or vomiting, numbness or tingling, dysuria or hematuria, constipation or diarrhea, headaches or visual changes, or any other complaints. - Related Data Home Medications Medication Instructions Recorded Confirmed No Known Home Medications [No 05/17/17 05/17/17 Known Home Medications] Allergies Allergy/AdvReac Type Severity Reaction Status Date / Time latex Allergy Swelling Verified 05/17/17 09:54 methylphenidate Allergy Unknown Verified 05/17/17 09:54 [From Ritalin] Sulfa (Sulfonamide Allergy Unknown Verified 05/17/17 09:54 Antibiotics) Review of Systems ROS Statement: Those systems with pertinent positive or pertinent negative responses have been documented in the HPI. ROS Other: All systems not noted in ROS Statement are negative. 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 Eye: Pupils are equal, round and reactive to light, extra-ocular movements are intact. No nystagmus. There is normal conjunctiva bilaterally. No signs of icterus. Ears, nose, mouth and throat: There are moist mucous membranes and no oral lesions. Neck: The neck is supple, there is no tenderness or JVD. Cardiovascular: There is a regular rate and rhythm. No murmur, rub or gallop is appreciated. Respiratory: Expiratory wheeze bilaterally. respirations are non-labored, breath sounds are equal. No stridor, rales, or rhonchi. Musculoskeletal: Normal ROM, no tenderness. Strength 5/5. Sensation intact. Pulses equal bilaterally 2+. Neurological: A&O x 3. CN II-XII intact, There are no obvious motor or sensory deficits. Coordination appears grossly intact. Speech is normal. Skin: She does have a 1 cm linear laceration running horizontally over the left middle finger at the PIP joint. No active bleeding. Psychiatric: Cooperative, appropriate mood & affect, normal judgment. Limitations: no limitations Course Vital Signs 05/17/17 05/17/17 05/17/17 09:22 09:39 09:49 Temperature 98.0 F Pulse Rate 90 90 88 Respiratory 20 20 Rate Blood Pressure 146/85 O2 Sat by Pulse 97 Oximetry Procedures - Procedures Initial comment: laceration 1 cm to the right middle finger. Wound cleaned with saline irrigated and prepped. Closed with Dermabond. Patient tolerated well. Medical Decision Making - Medical Decision Making Patient reexamined at this time shows no signs of distress. His laceration cleaned and closed here in emergency room. Patient was given breathing treatment here in the emergency room. Is feeling better. Lung sounds are clear. Patient will be discharged home. Advised to follow-up family doctor return if any concerns. Disposition Clinical Impression: Laceration, Asthma exacerbation Disposition: HOME SELF-CARE Condition: Good Instructions: Laceration (ED) Additional Instructions: Please allow the glue to fall off on its own over the next 2-5 days. Please watch for any signs of infection which may include increased pain, swelling, redness, fever or chills. Please use. Treatments at home for asthma as discussed. Please follow-up family doctor over the next 2 days or return here to the emergency room if any symptoms increase or worsen or fail concerns. Referrals: Lincoln Madden Jr, DO [Primary Care Provider] - 1-2 days Time of Disposition: 10:03
[2017-05-17 10:26] VITALS: BP 148/95; PULSE 72; RESP 16
== END 2017-05-17 10:25 | disposition home or self-care (01) ==
LOC: EC 09:21
DX: S61.212A Laceration without foreign body of right middle finger without damage to nail, initial encounter (principal); J45.901 Unspecified asthma with (acute) exacerbation; F17.200 Nicotine dependence, unspecified, uncomplicated; Z88.2 Allergy status to sulfonamides; Z88.8 Allergy status to other drugs, medicaments and biological substances; Z91.040 Latex allergy status; W20.8XXA Other cause of strike by thrown, projected or falling object, initial encounter; Y92.009 Unspecified place in unspecified non-institutional (private) residence as the place of occurrence of the external cause
CPT/HCPCS: 12001; 94640; 99283

== ENCOUNTER 2017-05-20 01:09 | Emergency (ER) | payer OTHER ==
[2017-05-20 01:23] VITALS: BP 124/74; RESP 18; TEMP 97.7
[2017-05-20] MEDS ORDERED: IPRATROPIUM-ALBUTEROL 3 ML NEB INHALATION STA (02:47)
--- NOTE | 2017-05-20 03:10 | ED ---
General Adult HPI - General Chief complaint: Recheck/Abnormal Lab/Rx Stated complaint: Finger Lac-Revisit Time Seen by Provider: 05/20/17 02:43 Source: patient, RN notes reviewed Mode of arrival: ambulatory Limitations: no limitations - History of Present Illness Initial comments: 31-year-old male presents to the emergency department with a chief complaint of finger laceration opening. Patient states her mom was placed and the Dermabond fell off. Patient states he then tried to superglue it. Patient states that it just continues to bleed and he does not hot a close it. Patient states that injury happened a few days ago. Patient states that his tetanus is up-to-date. Patient states that he does also receive DuoNeb breathing treatments chronically and he is due for thisSince he has been waiting so long. Patient states he feels no short of breath increased compared to normal.Patient denies any recent fever, chills, chest pain, back pain, abdominal pain, nausea vomiting , numbness or tingling, dysuria or hematuria, constipation or diarrhea, headaches or visual changes, or any other current symptoms. - Related Data Home Medications Medication Instructions Recorded Confirmed No Known Home Medications [No 05/17/17 05/17/17 Known Home Medications] Allergies Allergy/AdvReac Type Severity Reaction Status Date / Time latex Allergy Swelling Verified 05/20/17 01:22 methylphenidate Allergy Unknown Verified 05/20/17 01:22 [From Ritalin] Sulfa (Sulfonamide Allergy Unknown Verified 05/20/17 01:22 Antibiotics) Review of Systems ROS Statement: Those systems with pertinent positive or pertinent negative responses have been documented in the HPI. ROS Other: All systems not noted in ROS Statement are negative. 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 Neck: The neck is supple, there is no tenderness. Cardiovascular: There is a regular rate and rhythm. No murmur, rub or gallop is appreciated. Respiratory: Lungs are clear to auscultation, respirations are non-labored, breath sounds are equal. Diffuse wheeze which is chronic, no stridor, rales, or rhonchi. Musculoskeletal: Sensation intact with 2+ pulses throughout the hand. Range of motion of all digits. Patient is. 1 cm laceration that is open no signs of erythema or swelling surrounding the area. There is some bleeding noted at the site. Neurological: CN II-XII intact, There are no obvious motor or sensory deficits. Coordination appears grossly intact. Speech is normal. Skin: Skin is warm and dry and no rashes or lesions are noted. Psychiatric: Normal mood and affect. Limitations: no limitations Course Vital Signs 05/20/17 01:18 Temperature 97.7 F Pulse Rate 84 Respiratory 18 Rate Blood Pressure 124/74 O2 Sat by Pulse 100 Oximetry - Reevaluation(s) Reevaluation #1: 05/20/17 03:10 Patient does suffer from chronic asthma. He is due for a DuoNeb treatment at this time. We will give him one prior to discharge. He does have wheezing which she states is chronic. Medical Decision Making - Medical Decision Making 31-year-old male presents for recheck of a wound that Dermabond was placed that did not hold the wound. This time we discussed we cannot reclose it due to risk of infection. We discussed keep clean and dry. We discussed bandaging for home. We discussed care follow-up and return parameters all questions. Patient stated that he understood any significant this plan. This time we will be discharged home. Disposition Clinical Impression: Laceration of right middle finger Disposition: HOME SELF-CARE Condition: Stable Instructions: Laceration (ED) Additional Instructions: Please use medication as discussed. Please follow up with family doctor if symptoms have not improved over the next two days. Please return to the emergency room if your symptoms increase or worsen or for any other concerns. Referrals: Lincoln Madden Jr, DO [Primary Care Provider] - 1-2 days Time of Disposition: 03:10
[2017-05-20 03:18] VITALS: PULSE 88
== END 2017-05-20 03:37 | disposition home or self-care (01) ==
LOC: EC 01:09
DX: S61.212D Laceration without foreign body of right middle finger without damage to nail, subsequent encounter (principal); R06.02 Shortness of breath; F17.200 Nicotine dependence, unspecified, uncomplicated; Z91.040 Latex allergy status; Z88.2 Allergy status to sulfonamides; Z88.8 Allergy status to other drugs, medicaments and biological substances
CPT/HCPCS: 94640; 99283

== ENCOUNTER 2017-06-13 00:29 | Emergency (ER) | payer OTHER ==
[2017-06-13 00:36] VITALS: BP 129/74; TEMP 99.6
[2017-06-13] MEDS ORDERED: IPRATROPIUM-ALBUTEROL 3 ML NEB INHALATION STA ×2 (00:44→01:39)
--- NOTE | 2017-06-13 00:46 | ED ---
General Adult HPI - General Chief complaint: Shortness of Breath Stated complaint: NILTON Time Seen by Provider: 06/13/17 00:38 Source: patient, RN notes reviewed Mode of arrival: ambulatory Limitations: no limitations - History of Present Illness Initial comments: Patient is a pleasant 31-year-old male presenting to the emergency department complaining of difficulty in breathing. Patient states onset was this morning. Patient states this was following his last March of treatment. Patient ran out of his medication. Patient states he has been taken more than normal because he lives in a garage with a bunch of smokers. Patient is waiting on his primary care physician to improve and override for his insurance. Patient has had mild cough with white sputum. No fever. No chest pain. No leg pain or leg swelling. Patient states symptoms are similar to his chronic asthma. - Related Data Previous Rx's Medication Instructions Recorded predniSONE 20 mg PO DAILY #5 tab 06/13/17 Allergies Allergy/AdvReac Type Severity Reaction Status Date / Time latex Allergy Swelling Verified 06/13/17 00:36 methylphenidate Allergy Unknown Verified 06/13/17 00:36 [From Ritalin] Sulfa (Sulfonamide Allergy Unknown Verified 06/13/17 00:36 Antibiotics) Review of Systems ROS Statement: Those systems with pertinent positive or pertinent negative responses have been documented in the HPI. ROS Other: All systems not noted in ROS Statement are negative. 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 History of Any Multi-Drug Resistant Organisms: None Reported Past Surgical History: Orthopedic Surgery Past Psychological History: ADD/ADHD, Anxiety, Bipolar, Schizoaffective Disorder Smoking Status: Current every day smoker Past Alcohol Use History: Occasional Past Drug Use History: Marijuana General Exam Limitations: no limitations General appearance: alert, in no apparent distress Head exam: Present: atraumatic Eye exam: Present: normal appearance, PERRL ENT exam: Present: normal oropharynx Neck exam: Present: normal inspection Respiratory exam: Present: wheezes Cardiovascular Exam: Present: regular rate, normal rhythm GI/Abdominal exam: Present: soft. Absent: tenderness Extremities exam: Present: normal inspection. Absent: pedal edema, calf tenderness Back exam: Present: normal inspection Neurological exam: Present: alert Psychiatric exam: Present: normal affect, normal mood Skin exam: Present: normal color Course Vital Signs 06/13/17 06/13/17 06/13/17 00:31 00:50 00:59 Temperature 99.6 F Pulse Rate 89 88 88 Respiratory 28 H Rate Blood Pressure 129/74 O2 Sat by Pulse 95 Oximetry 06/13/17 01:13 Temperature Pulse Rate Respiratory 20 Rate Blood Pressure O2 Sat by Pulse 98 Oximetry Medical Decision Making - Medical Decision Making Patient reexamined and resting comfortably in bed. Minimal wheeze. Patient states he is comfortable with discharge. Patient is advised to follow-up with his doctor tomorrow regarding his medications. - Radiology Data Radiology results: image reviewed (Chest x-ray shows no acute process) Disposition Clinical Impression: Asthma exacerbation Disposition: HOME SELF-CARE Condition: Stable Instructions: Asthma (ED) Additional Instructions: Please follow-up with your doctor in the morning regarding your medication. Return for fever, difficult to breathing, worsening symptoms or other concerns. Prescriptions: predniSONE 20 mg PO DAILY #5 tab Referrals: Lincoln Madden Jr, DO [Primary Care Provider] - 1-2 days Time of Disposition: 01:39
[2017-06-13 00:51] VITALS: PULSE 88
[2017-06-13 01:14] VITALS: RESP 20
--- NOTE | 2017-06-13 01:32 | XR ---
EXAM: XR Chest, 2 Views CLINICAL HISTORY: Reason: dyspnea TECHNIQUE: Frontal and lateral views of the chest. COMPARISON: Chest radiograph 04/05/2017 FINDINGS: Lungs: Lungs are clear. Pleural space: No evidence of pneumothorax or pleural effusion. Heart: Heart size is within normal limits. Mediastinum: Unremarkable. Bones/joints: Imaged bony thorax is unremarkable. Other findings: No significant change since 04/05/2017. IMPRESSION: No evidence of active chest disease.
[2017-06-13] MEDS ORDERED: predniSONE 50 MG TAB PO STA (01:37)
== END 2017-06-13 01:50 | disposition home or self-care (01) ==
LOC: EC 00:29
DX: J45.901 Unspecified asthma with (acute) exacerbation (principal); F17.200 Nicotine dependence, unspecified, uncomplicated; Z88.2 Allergy status to sulfonamides; Z91.040 Latex allergy status; Z88.8 Allergy status to other drugs, medicaments and biological substances
CPT/HCPCS: 94640; 71020; 99284; J7512

== ENCOUNTER 2018-03-07 03:39 | Emergency (ER) | payer OTHER ==
[2018-03-07] MEDS ORDERED: predniSONE 20 MG TAB PO STA (04:15)
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
[2018-03-07 04:38] VITALS: BP 131/65; PULSE 82; RESP 18; TEMP 98.9
== END 2018-03-07 04:36 | disposition home or self-care (01) ==
LOC: EC 03:39
DX: G51.0 Bell's palsy (principal); I44.0 Atrioventricular block, first degree; F17.200 Nicotine dependence, unspecified, uncomplicated; Z88.2 Allergy status to sulfonamides; Z88.8 Allergy status to other drugs, medicaments and biological substances; Z91.040 Latex allergy status
CPT/HCPCS: 99285; 93005; J7512

== ENCOUNTER → 2018-03-14 | Outpatient (CLI) | payer OTHER ==
--- NOTE | 2018-03-15 06:33 | CT ---
EXAMINATION TYPE: CT brain wo con DATE OF EXAM: 03/14/2018 COMPARISON: NONE HISTORY: headache and left sided weakness CT DLP: 1054.2 mGycm. Automated Exposure Control for Dose Reduction was Utilized. TECHNIQUE: CT scan of the head is performed without contrast. FINDINGS: There is no acute intracranial hemorrhage, mass effect, or midline shift identified. The ventricles and sulci are within normal limits in size. Mojica-white matter differentiation is preserv ed. There is patchy opacification inferiorly in the right frontal sinus otherwise paranasal sinuses a re clear. The globes are intact bilaterally.. IMPRESSION: No acute intracranial hemorrhage or midline shift is seen. Possible mild acute right fro ntal sinusitis, correlate clinically.
== END | disposition home or self-care (01) ==
LOC: RADCTMAIN 18:17
PROVIDERS: ATTEND Family Medicine
DX: G51.9 Disorder of facial nerve, unspecified (principal)
CPT/HCPCS: 70450

== ENCOUNTER 2018-09-26 17:33 | Emergency (ER) | payer OTHER ==
[2018-09-26] MEDS ORDERED: LIDOCAINE 1% INJ 10MG/ML (20 ML MDV) SQ STA (17:55)
[2018-09-26] MEDS ORDERED: DIPH,PERTUS(ACELL)TETVAC-LF 0.5 ML VIAL IM ONE (17:56)
--- NOTE | 2018-09-26 18:01 | ED ---
General Adult HPI - General Chief complaint: Wound/Laceration Stated complaint: Hand lac Time Seen by Provider: 09/26/18 17:38 Source: patient, EMS, RN notes reviewed Mode of arrival: EMS Limitations: no limitations - History of Present Illness Initial comments: Patient is a 33-year-old male who presents the emergency department with complaints of laceration of the right hand that occurred about 45 minutes ago when he was trying to jump a fence. He does not believe he is up-to-date on his tetanus vaccine and would like it updated here. Patient denies any recent head trauma, loss of consciousness, fever, chills, shortness of breath, chest pain, back pain, abdominal pain, nausea or vomiting, numbness or tingling, headaches or visual changes, or any other complaints. - Related Data Previous Rx's Medication Instructions Recorded predniSONE 20 mg PO DAILY #5 tab 06/13/17 Allergies Allergy/AdvReac Type Severity Reaction Status Date / Time latex Allergy Swelling Verified 09/26/18 17:34 methylphenidate Allergy Unknown Verified 09/26/18 17:34 [From Ritalin] Sulfa (Sulfonamide Allergy Unknown Verified 09/26/18 17:34 Antibiotics) Review of Systems ROS Statement: Those systems with pertinent positive or pertinent negative responses have been documented in the HPI. ROS Other: All systems not noted in ROS Statement are negative. Past Medical History Past Medical History: Asthma Additional Past Medical History / Comment(s): multiple personality disorder History of Any Multi-Drug Resistant Organisms: None Reported Past Surgical History: Orthopedic Surgery Past Psychological History: ADD/ADHD, Anxiety, Bipolar, Schizoaffective Disorder Smoking Status: Current every day smoker Past Alcohol Use History: Occasional Past Drug Use History: Marijuana General Exam Limitations: no limitations General appearance: alert, in no apparent distress Head exam: Present: atraumatic, normocephalic Eye exam: Present: normal appearance Respiratory exam: Present: normal lung sounds bilaterally Cardiovascular Exam: Present: regular rate, normal rhythm Extremities exam: Present: full ROM, normal capillary refill, other (8 cm laceration across palm. Most is superficial with a 2 cm area that is deeper. Sensation intact.) Neurological exam: Present: alert, oriented X3 Psychiatric exam: Present: normal affect, normal mood Skin exam: Present: warm, dry Course Vital Signs 09/26/18 09/26/18 09/26/18 17:34 20:01 20:07 Temperature 97.7 F Pulse Rate 100 100 104 H Respiratory 18 Rate Blood Pressure 135/74 O2 Sat by Pulse 99 Oximetry Procedures - Laceration Laceration #1 Consent Obtained: verbal consent Time Out Performed: Yes Indication: laceration Site: hand Size (cm): 2 Description: linear, clean Depth: simple, single layer Sedation/Analgesia: none Anesthetic Used: lidocaine 1%, without epi Anesthesia Technique: local infiltration Amount (mls): 4 Pre-repair: wound explored, irrigated extensively, deep structures intact Type of Sutures: nylon Size of Sutures: 4-0 Number of Sutures: 2 Technique: simple, interrupted Patient Tolerated Procedure: well, no complications Additional Comments: Neurovascularly intact after procedure. Medical Decision Making - Medical Decision Making Patient reports that he has asthma and that he normally does a breathing treatment at home; he reports that his chest is beginning to feel tight and that he thinks he needs a breathing treatment. Denies difficulty breathing. Patient has wheezing on exam. Duoneb was ordered. Upon reexamination, wheezing has resolved. 2 cm wound was sutured. Case discussed in detail with attending physician Dr. Varma. Disposition Clinical Impression: Laceration Disposition: HOME SELF-CARE Condition: Good Instructions: Care For Your Stitches (ED) Additional Instructions: Follow up with PCP in 2 days. Return to ER or follow-up with PCP in 14-21 days for suture removal. Return to emergency department if any redness, swelling, drainage or fevers as this could indicate an infection. Return to emergency department if any other concerns. Is patient prescribed a controlled substance at d/c from ED?: No Referrals: Lincoln Madden Jr, [Primary Care Provider] - 1-2 days Time of Disposition: 20:15
[2018-09-26 18:30] VITALS: TEMP 97.7
[2018-09-26] MEDS ORDERED: IPRATROPIUM-ALBUTEROL 3 ML NEB INHALATION STA (19:41)
[2018-09-26] MEDS ORDERED: ACETAMINOPHEN TAB 500 MG TAB PO STA (20:13)
[2018-09-26 20:27] VITALS: BP 129/79; PULSE 88; RESP 16
== END 2018-09-26 20:25 | disposition home or self-care (01) ==
LOC: EC 17:33
DX: S61.411A Laceration without foreign body of right hand, initial encounter (principal); F90.9 Attention-deficit hyperactivity disorder, unspecified type; F31.9 Bipolar disorder, unspecified; F25.9 Schizoaffective disorder, unspecified; F44.81 Dissociative identity disorder; F17.200 Nicotine dependence, unspecified, uncomplicated; Z88.2 Allergy status to sulfonamides; Z88.8 Allergy status to other drugs, medicaments and biological substances; Z91.040 Latex allergy status; W26.8XXA Contact with other sharp object(s), not elsewhere classified, initial encounter; Z23 Encounter for immunization
CPT/HCPCS: 94640; 90715; 99283; 12001; 90471; J2001

== ENCOUNTER 2019-10-17 23:43 | Emergency (ER) | payer OTHER ==
[2019-10-18] MEDS ORDERED: ACET/COD 300 MG/30 MG STARTER PACK 6 TAB BTL PO STA (00:44)
[2019-10-18] MEDS ORDERED: PENICILLIN VK 500MG STARTER 4 TAB BTL PO STA (00:44)
[2019-10-18] MEDS ORDERED: KETOROLAC 30 MG/ML 1 ML VIAL IM STA (00:44)
[2019-10-18] MEDS ORDERED: MORPHINE SULFATE 4 MG/ML SYRINGE IM STA (00:44)
--- NOTE | 2019-10-18 00:46 | ED ---
ENT HPI - General Chief complaint: Dental/Oral Stated complaint: Dental Pain Time Seen by Provider: 10/18/19 00:40 Source: patient Mode of arrival: ambulatory Limitations: no limitations - History of Present Illness Initial comments: 34-year-old male patient presents to the emergency department today for evaluation of left upper dental pain. Patient states his been having pain on and off for the last 3 weeks but has been worsening over the last couple of days. Patient states he believes it is his wisdom tooth. States that the tooth has broken off. He reports intermittent left-sided facial swelling. Denies fever or chills. Reports painful opening and closing of his mouth. Denies difficulty swallowing. Denies nausea or vomiting. Patient denies taking any antibiotics for his symptoms. He did take Tylenol Motrin earlier today which did not seem to help. Does have a dentist appointment on October 30. Reports finances as a barrier to dentistry. Patient denies any recent rash, shortness breath, chest pain, abdominal pain, diarrhea, constipation, back pain, numbness, tingling, dizziness, weakness, hematuria, dysuria, urinary urgency, urinary frequency, headache, visual changes, or any other complaints. - Related Data Previous Rx's Medication Instructions Recorded predniSONE 20 mg PO DAILY #5 tab 06/13/17 Allergies Allergy/AdvReac Type Severity Reaction Status Date / Time latex Allergy Swelling Verified 10/17/19 23:58 methylphenidate Allergy Unknown Verified 10/17/19 23:58 [From Ritalin] Sulfa (Sulfonamide Allergy Unknown Verified 10/17/19 23:58 Antibiotics) Review of Systems ROS Statement: Those systems with pertinent positive or pertinent negative responses have been documented in the HPI. ROS Other: All systems not noted in ROS Statement are negative. 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 Absent: scleral icterus, conjunctival injection, periorbital swelling ENT exam: Present: mucous membranes moist, other (poor dentition. Left upper tooth is broken down to the gumline. There is surrounding gingival erythema. No evidence of drainable abscess.). Absent: normal exam Respiratory exam: Present: normal lung sounds bilaterally. Absent: respiratory distress, wheezes, rales, rhonchi, stridor Cardiovascular Exam: Present: regular rate, normal rhythm, normal heart sounds. Absent: systolic murmur, diastolic murmur, rubs, gallop, clicks GI/Abdominal exam: Present: soft, normal bowel sounds. Absent: distended, tenderness, guarding, rebound, rigid Neurological exam: Present: alert, oriented X3, CN II-XII intact Psychiatric exam: Present: normal affect, normal mood Skin exam: Present: warm, dry, intact, normal color. Absent: rash Course Vital Signs 10/17/19 10/18/19 23:57 00:57 Temperature 98.0 F 98 F Pulse Rate 104 H 77 Respiratory 22 18 Rate Blood Pressure 111/70 134/84 O2 Sat by Pulse 97 97 Oximetry Medical Decision Making - Medical Decision Making 34-year-old male patient presents to the emergency department today for evaluation of left upper dental pain. Physical examination revealed gingival erythema and hyperplasia. No evidence of drainable abscess. We'll treat with penicillin. We'll be given pain medication. He is instructed follow-up with dentistry as soon as possible. Return parameters were discussed in detail. He verbalizes understanding and agrees with this plan. Disposition Clinical Impression: Dental infection Disposition: HOME SELF-CARE Condition: Good Instructions (If sedation given, give patient instructions): Dental Abscess (ED), Toothache (ED) Additional Instructions: Complete medications as directed. Follow up with a dentist as soon as possible. Return to the emergency department immediately for any new, worsening, or concerning symptoms. Is patient prescribed a controlled substance at d/c from ED?: No Referrals: Lincoln Madden Jr, DO [Primary Care Provider] - 1-2 days Time of Disposition: 00:46
[2019-10-18 00:59] VITALS: BP 134/84; PULSE 77; RESP 18; TEMP 98
== END 2019-10-18 00:57 | disposition home or self-care (01) ==
LOC: EC 23:43
DX: K04.7 Periapical abscess without sinus (principal); S02.5XXA Fracture of tooth (traumatic), initial encounter for closed fracture; F17.200 Nicotine dependence, unspecified, uncomplicated; Z88.2 Allergy status to sulfonamides; Z88.8 Allergy status to other drugs, medicaments and biological substances; Z91.040 Latex allergy status; X58.XXXA Exposure to other specified factors, initial encounter
CPT/HCPCS: 96372; 99283

== ENCOUNTER 2022-07-20 15:52 | Emergency (ER) | payer OTHER ==
[2022-07-20] MEDS ORDERED: DEXAMETHASONE SOD PHOSPHATE 10 MG/ML 1 ML VIAL IM STA (16:23)
[2022-07-20] MEDS ORDERED: IPRATROPIUM-ALBUTEROL 3 ML NEB INHALATION STA (16:23)
--- NOTE | 2022-07-20 17:11 | XR ---
EXAMINATION TYPE: XR chest 2V DATE OF EXAM: 07/20/2022 4:34 PM COMPARISON: Chest radiographs from 06/13/2017 TECHNIQUE: XR chest 2V Frontal and lateral views of the chest. CLINICAL INDICATION:Male, 36 years old with history of Cough, shortness of breath; FINDINGS: Lungs/Pleura: There is no evidence of pleural effusion, focal consolidation, or pneumothorax. Pulmonary vascularity: Unremarkable. Heart/mediastinum: Cardiomediastinal silhouette is unremarkable. Musculoskeletal: No acute osseous pathology. IMPRESSION: No acute cardiopulmonary disease/process.
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
[2022-07-20 18:33] VITALS: BP 138/83; PULSE 81; RESP 18; TEMP 98.4
== END 2022-07-20 17:52 | disposition home or self-care (01) ==
LOC: EC 15:52
DX: J45.901 Unspecified asthma with (acute) exacerbation (principal); F17.200 Nicotine dependence, unspecified, uncomplicated; Z20.822 Contact with and (suspected) exposure to COVID-19; Z79.51 Long term (current) use of inhaled steroids; Z88.8 Allergy status to other drugs, medicaments and biological substances; Z91.040 Latex allergy status; Z88.2 Allergy status to sulfonamides
CPT/HCPCS: 94640; 87635; 71046; 96372; 99283; J1100

== ENCOUNTER 2022-07-25 13:19 | Emergency (ER) | payer OTHER ==
[2022-07-25 13:50] VITALS: BP 122/78; TEMP 98.1
[2022-07-25] MEDS ORDERED: IPRATROPIUM-ALBUTEROL 3 ML NEB INHALATION STA ×2 (15:45→17:10)
[2022-07-25] MEDS ORDERED: DEXAMETHASONE SOD PHOSPHATE 10 MG/ML 1 ML VIAL IM STA (15:46)
--- NOTE | 2022-07-25 15:58 | ED ---
SOB HPI - General Chief Complaint: Shortness of Breath Stated Complaint: Asthma, SOB Time Seen by Provider: 07/25/22 15:01 Source: patient, RN notes reviewed Mode of arrival: wheelchair - History of Present Illness Initial Comments: This is a 36-year-old male who presents to the emergency department for difficulty breathing. Patient was evaluated here 5 days ago due to shortness of breath, coughing, and a sore throat. He was diagnosed with asthmatic bronchitis and discharged with a course of prednisone and a refill on his DuoNeb treatments. Patient states that he is out of his medication and does not feel like he is getting any better. His breathing is getting worse and he has started to cough up blood. Nobody around him has been sick. Denies any fevers, chills, palpitations, abdominal pain, nausea, vomiting, diarrhea, back pain, or headaches. MD Complaint: shortness of breath, cough Onset/Timin -: days(s) Known History Of: asthma - Related Data Home Medications Medication Instructions Recorded Confirmed Albuterol Sulfate [Proair Hfa] 2 puff INHALATION RT-Q4H PRN 07/25/22 07/25/22 Ipratropium-Albuterol Nebulize 3 ml INHALATION RT-QID PRN 07/25/22 07/25/22 [Duoneb 0.5 mg-3 mg/3 ml Soln] Mometasone/Formoterol [Dulera 200 2 puff INHALATION RT-BID 07/25/22 07/25/22 Mcg-5 Mcg Inhaler] Omeprazole [PriLOSEC] 20 mg PO DAILY 07/25/22 07/25/22 predniSONE 50 mg PO DAILY 07/25/22 07/25/22 Previous Rx's Medication Instructions Recorded Doxycycline [Vibramycin] 100 mg PO BID 5 Days #10 capsule 07/25/22 Ipratropium-Albuterol Nebulize 3 ml INHALATION Q4H PRN #90 ml 07/25/22 [Duoneb 0.5 mg-3 mg/3 ml Soln] predniSONE 50 mg PO QAM 5 Days #5 tablet 07/25/22 Allergies Allergy/AdvReac Type Severity Reaction Status Date / Time latex Allergy Swelling @ Verified 07/25/22 17:58 contact methylphenidate Allergy Unknown Verified 07/25/22 17:58 [From Ritalin] Sulfa (Sulfonamide Allergy Unknown Verified 07/25/22 17:58 Antibiotics) Review of Systems ROS Statement: Those systems with pertinent positive or pertinent negative responses have been documented in the HPI. ROS Other: All systems not noted in ROS Statement are negative. 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 Absent: systolic murmur, diastolic murmur, rubs, gallop, clicks Neurological exam: Present: alert, oriented X3, CN II-XII intact Psychiatric exam: Present: normal affect, normal mood Skin exam: Present: warm, dry, intact, normal color. Absent: rash Course Vital Signs 07/25/22 07/25/22 07/25/22 13:45 16:14 16:24 Temperature 98.1 F Pulse Rate 89 99 101 H Respiratory 20 24 22 Rate Blood Pressure 122/78 O2 Sat by Pulse 99 Oximetry 07/25/22 07/25/22 17:40 17:51 Temperature Pulse Rate 100 102 H Respiratory 22 22 Rate Blood Pressure O2 Sat by Pulse Oximetry Medical Decision Making - Medical Decision Making This is a 36-year-old male who presents to the emergency department for shortness of breath. Lab work including a d-dimer and troponin were obtained. CBC reveals leukocytosis most likely secondary to prednisone use. Lab work was otherwise nonactionable. Patient negative for COVID. Chest x-ray obtained revealing central perihilar peribronchial cuffing consistent with acute asthma exacerbation. Patient was given a dose of Decadron and two Duoneb treatments. He reported symptomatic improvement and auscultation revealed improved air flow and reduction of wheezing after each treatment. Patient states that he feels stable for discharge home. Prescription for an additional 5 days of prednisone and a refill on his Duonebs was provided. Patient was also started on a five- day course of doxycycline. Return precautions reviewed in depth, the patient is instructed to return to the emergency department with any new, worsening, or concerning symptoms. Patient verbalized understanding. This case was discussed in detail with the attending ED physician. Presentation, findings, and treatment plan discussed in detail as well. - Lab Data Result diagrams: 07/25/22 16:10 07/25/22 16:10 Lab Results 07/25/22 07/25/22 07/25/22 Range/Units 15:11 16:10 16:10 WBC 20.2 H (3.8-10.6) k/uL RBC 4.76 (4.30-5.90) m/uL Hgb 14.7 (13.0-17.5) gm/dL Hct 45.3 (39.0-53.0) % MCV 95.2 (80.0-100.0) fL MCH 30.8 (25.0-35.0) pg MCHC 32.4 (31.0-37.0) g/dL RDW 13.9 (11.5-15.5) % Plt Count 356 (150-450) k/uL MPV 7.2 Neutrophils % 86 % Lymphocytes % 10 % Monocytes % 3 % Eosinophils % 1 % Basophils % 0 % Neutrophils # 17.4 H (1.3-7.7) k/uL Lymphocytes # 2.0 (1.0-4.8) k/uL Monocytes # 0.5 (0-1.0) k/uL Eosinophils # 0.1 (0-0.7) k/uL Basophils # 0.1 (0-0.2) k/uL D-Dimer <0.17 (<0.60) mg/L FEU Sodium (137-145) mmol/L Potassium (3.5-5.1) mmol/L Chloride (98-107) mmol/L Carbon Dioxide (22-30) mmol/L Anion Gap mmol/L BUN (9-20) mg/dL Creatinine (0.66-1.25) mg/dL Est GFR (CKD-EPI)AfAm (>60 ml/min/1.73 sqM) Est GFR (CKD-EPI)NonAf (>60 ml/min/1.73 sqM) Glucose (74-99) mg/dL Calcium (8.4-10.2) mg/dL Total Bilirubin (0.2-1.3) mg/dL AST (17-59) U/L ALT (4-49) U/L Alkaline Phosphatase (38-126) U/L Troponin I (0.000-0.034) ng/mL Total Protein (6.3-8.2) g/dL Albumin (3.5-5.0) g/dL Coronavirus (PCR) Not Detected (Not Detectd) 07/25/22 07/25/22 Range/Units 16:10 16:10 WBC (3.8-10.6) k/uL RBC (4.30-5.90) m/uL Hgb (13.0-17.5) gm/dL Hct (39.0-53.0) % MCV (80.0-100.0) fL MCH (25.0-35.0) pg MCHC (31.0-37.0) g/dL RDW (11.5-15.5) % Plt Count (150-450) k/uL MPV Neutrophils % % Lymphocytes % % Monocytes % % Eosinophils % % Basophils % % Neutrophils # (1.3-7.7) k/uL Lymphocytes # (1.0-4.8) k/uL Monocytes # (0-1.0) k/uL Eosinophils # (0-0.7) k/uL Basophils # (0-0.2) k/uL D-Dimer (<0.60) mg/L FEU Sodium 138 (137-145) mmol/L Potassium 4.0 (3.5-5.1) mmol/L Chloride 103 (98-107) mmol/L Carbon Dioxide 23 (22-30) mmol/L Anion Gap 12 mmol/L BUN 12 (9-20) mg/dL Creatinine 0.99 (0.66-1.25) mg/dL Est GFR (CKD-EPI)AfAm >90 (>60 ml/min/1.73 sqM) Est GFR (CKD-EPI)NonAf >90 (>60 ml/min/1.73 sqM) Glucose 116 H (74-99) mg/dL Calcium 9.3 (8.4-10.2) mg/dL Total Bilirubin 0.5 (0.2-1.3) mg/dL AST 29 (17-59) U/L ALT 34 (4-49) U/L Alkaline Phosphatase 71 (38-126) U/L Troponin I <0.012 (0.000-0.034) ng/mL Total Protein 6.7 (6.3-8.2) g/dL Albumin 4.4 (3.5-5.0) g/dL Coronavirus (PCR) (Not Detectd) - EKG Data EKG Comments: Sinus rhythm. Ventricular rate 88 bpm, AR interval 202 ms, QRS duration 104 ms, QTC 403 ms. - Radiology Data Radiology results: report reviewed, image reviewed Disposition Clinical Impression: Asthma with exacerbation, Asthmatic bronchitis Disposition: HOME SELF-CARE Instructions (If sedation given, give patient instructions): Asthma (ED), Acute Bronchitis (ED), Bronchospasm (ED), Wheezing (ED) Additional Instructions: Return to the emergency department with any new, worsening, or concerning symptoms. Take the antibiotic as prescribed for 5 days. Use the DuoNeb breathing treatments up to every 4-6 hours as needed for wheezing and difficulty breathing. Take the prednisone daily for 5 days. Prescriptions: Ipratropium-Albuterol Nebulize [Duoneb 0.5 mg-3 mg/3 ml Soln] 3 ml INHALATION Q4H PRN #90 ml PRN Reason: Shortness Of Breath predniSONE 50 mg PO QAM 5 Days #5 tablet Doxycycline [Vibramycin] 100 mg PO BID 5 Days #10 capsule Is patient prescribed a controlled substance at d/c from ED?: No Referrals: None,Stated [Primary Care Provider] - 1-2 days
--- NOTE | 2022-07-25 16:09 | XR ---
EXAMINATION TYPE: XR chest 2V DATE OF EXAM: 07/25/2022 COMPARISON: Chest x-ray 5 days ago HISTORY: Difficulty in breathing. TECHNIQUE: Frontal and lateral views of the chest are obtained. FINDINGS: There is no suspicious peripheral focal air space opacity, pleural effusion, or pneumothor ax seen. Central perihilar peribronchial cuffing bilaterally. The cardiac silhouette size is is stab le and within normal limits. The osseous structures are intact. IMPRESSION: Central perihilar peribronchial cuffing consistent with reactive airway disease possibly from acute asthma exacerbation. Correlate clinically.
[2022-07-25] MEDS ORDERED: DEXAMETHASONE SOD PHOSPHATE 4 MG/ML 1 ML VIAL IVP STA (16:15)
[2022-07-25 16:25] VITALS: RESP 22
[2022-07-25 16:32] LABS: Basophils # (A) 0.1 k/uL (0-0.2); Basophils % (A) 0 %; Eosinophils # (A) 0.1 k/uL (0-0.7); Eosinophils % (A) 1 %; HCT 45.3 % (39.0-53.0); HGB 14.7 gm/dL (13.0-17.5); Lymphocytes % (A) 10 %; MCH 30.8 pg (25.0-35.0); MCHC 32.4 g/dL (31.0-37.0); MCV 95.2 fL (80.0-100.0); Mean Platelet Volume 7.2; Monocytes # (A) 0.5 k/uL (0-1.0); Monocytes % (A) 3 %; Neutrophils # (A) 17.4 k/uL (1.3-7.7); Neutrophils % (A) 86 %; Platelet Count 356 k/uL (150-450); RBC 4.76 m/uL (4.30-5.90); RDW 13.9 % (11.5-15.5); WBC 20.2 k/uL (3.8-10.6)
[2022-07-25 16:40] LABS: ALT 34 U/L (4-49); AST 29 U/L (17-59); African American GFR (CKD) >90 (>60 ml/min/1.73 sqM); Albumin 4.4 g/dL (3.5-5.0); Alkaline Phosphatase 71 U/L (38-126); Anion Gap 12 mmol/L; Blood Urea Nitrogen 12 mg/dL (9-20); Calcium 9.3 mg/dL (8.4-10.2); Carbon Dioxide 23 mmol/L (22-30); Chloride 103 mmol/L (98-107); Glucose 116 mg/dL (74-99); Non-African American GFR(CKD) >90 (>60 ml/min/1.73 sqM); Sodium 138 mmol/L (137-145); Total Bilirubin 0.5 mg/dL (0.2-1.3); Total Protein 6.7 g/dL (6.3-8.2)
[2022-07-25 17:52] VITALS: PULSE 102
== END 2022-07-25 18:25 | disposition home or self-care (01) ==
LOC: EC 13:19
DX: J45.901 Unspecified asthma with (acute) exacerbation (principal); F17.200 Nicotine dependence, unspecified, uncomplicated; Z91.048 Other nonmedicinal substance allergy status; Z88.2 Allergy status to sulfonamides; Z88.8 Allergy status to other drugs, medicaments and biological substances
CPT/HCPCS: 36415; 94640 ×2; 85379; 80053; 84484; 85025; 87635; 71046; 99285; 96374; J1100

== ENCOUNTER 2022-08-26 19:49 | Emergency (ER) | payer OTHER ==
[2022-08-26 20:22] VITALS: BP 141/90; RESP 16; TEMP 98.1
[2022-08-26] MEDS ORDERED: IPRATROPIUM-ALBUTEROL 3 ML NEB INHALATION STA (23:31)
[2022-08-26] MEDS ORDERED: TETRACAINE 0.5% OPHTH (PF) DROPS 4 ML BTL RIGHT EYE STA (23:31)
[2022-08-26] MEDS ORDERED: FLUORESCEIN STRIPS 1 MG STRIP RIGHT EYE ONE (23:31)
--- NOTE | 2022-08-26 23:34 | ED ---
General Adult HPI - General Chief complaint: Eye Problems Stated complaint: rt eye pain Time Seen by Provider: 08/26/22 23:22 Source: patient, RN notes reviewed Mode of arrival: ambulatory Limitations: no limitations - History of Present Illness Initial comments: 37-year-old male presents to the emergency department for evaluation of right eye irritation. Patient states a large amount of done dish soap was poured over his head and ran down into his right eye earlier this evening. Patient reports burning discomfort and blurry vision, which has improved since arrival. States he did rinse his eye with copious amounts of water prior to arrival. Patient states while waiting in the lobby he did miss a breathing treatment and is feeling short of breath. Reports a history of asthma and is requesting and duo- neb per his home regimen at this time. He denies fever, chills, chest pain, abdominal pain, nausea, vomiting, diarrhea, or dysuria. - Related Data Home Medications Medication Instructions Recorded Confirmed Albuterol Sulfate [Proair Hfa] 2 puff INHALATION RT-Q4H PRN 07/25/22 07/25/22 Ipratropium-Albuterol Nebulize 3 ml INHALATION RT-QID PRN 07/25/22 07/25/22 [Duoneb 0.5 mg-3 mg/3 ml Soln] Mometasone/Formoterol [Dulera 200 2 puff INHALATION RT-BID 07/25/22 07/25/22 Mcg-5 Mcg Inhaler] Omeprazole [PriLOSEC] 20 mg PO DAILY 07/25/22 07/25/22 predniSONE 50 mg PO DAILY 07/25/22 07/25/22 Previous Rx's Medication Instructions Recorded Doxycycline [Vibramycin] 100 mg PO BID 5 Days #10 capsule 07/25/22 Ipratropium-Albuterol Nebulize 3 ml INHALATION Q4H PRN #90 ml 07/25/22 [Duoneb 0.5 mg-3 mg/3 ml Soln] predniSONE 50 mg PO QAM 5 Days #5 tablet 07/25/22 Erythromycin Ophth Oint [Romycin 1 applic RIGHT EYE QID 5 Days #3.5 08/27/22 Ophth Oint] gm Allergies Allergy/AdvReac Type Severity Reaction Status Date / Time latex Allergy Swelling @ Verified 08/26/22 20:20 contact methylphenidate Allergy Unknown Verified 08/26/22 20:20 [From Ritalin] Sulfa (Sulfonamide Allergy Unknown Verified 08/26/22 20:20 Antibiotics) Review of Systems ROS Statement: Those systems with pertinent positive or pertinent negative responses have been documented in the HPI. ROS Other: All systems not noted in ROS Statement are negative. 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 Absent: periorbital swelling, periorbital tenderness Pupils: Present: other (Fluorescein applied to right eye. Small focal area of uptake noted at the 10 o'clock position consistent with corneal abrasion. Patient is not a contact wearer. No foreign body visualized. pH 7. Eye irrigated.) Expanded Eyelids: Normal Inspection: Bilateral Pupils: Regular, Round: Bilateral Sclera/Conjunctival: Normal Inspection: Left, Injection: Right, Exudate: Right (string yellow drainage) Visual acuity (R) = 20/: 40 Visual acuity (L) = 20/: 40 With correction: No IOP (R) in mmH IOP (L) in mmH ENT exam: Present: normal exam, normal oropharynx, mucous membranes moist Respiratory exam: Present: wheezes (faint scattered wheezes throughout all lung francis), other (no tachypnea or evidence of increased breathing.) Cardiovascular Exam: Present: regular rate, normal rhythm, normal heart sounds. Absent: systolic murmur, diastolic murmur, rubs, gallop, clicks GI/Abdominal exam: Present: soft, normal bowel sounds. Absent: distended, tenderness, guarding, rebound, rigid Neurological exam: Present: alert, oriented X3, normal gait Psychiatric exam: Present: anxious Course Vital Signs 08/26/22 08/27/22 08/27/22 20:20 00:06 00:16 Temperature 98.1 F Pulse Rate 92 92 94 Respiratory 16 Rate Blood Pressure 141/90 O2 Sat by Pulse 100 Oximetry - Reevaluation(s) Reevaluation #1: 08/27/22 00:44 Upon reassessment, patient reports feeling much improved after breathing treatment. Medical Decision Making - Medical Decision Making This is an anxious 37-year-old male who presents to the emergency Department with complaints of right eye irritation secondary to dog dish soap. Incidentally, patient also complains of shortness of breath and wheezing after missing breathing treatment. Upon exam, patient appears anxious but is in no acute distress. Conjunctival injection noted to the right eye with small amount of stringy yellow drainage. Fluorescein exam reveals corneal abrasion. pH7. Tetracaine applied to right eye with relief of pain. Affected eye irrigated. Erythromycin eye ointment applied. Patient is instructed on hand hygiene and follow-up care. He was given a DuoNeb for his shortness of breath. Chest x-ray was negative. Patient has no increased work of breathing, chest pain, or productive cough. Reports significant improvement after DuoNeb. He will be discharged home to follow up with his PCP for a recheck on Monday. Return parameters discussed in detail. Patient verbalizes understanding and agrees with this plan. Attending: Radha. - Radiology Data Radiology results: report reviewed, image reviewed Two-view chest x-ray was obtained. Report was reviewed in its entirety. Impression per Dr. Wills is normal chest. There is clearing is some mild right-sided perihilar infiltrate compared old exam. Disposition Clinical Impression: Conjunctivitis, right eye, Corneal abrasion Disposition: HOME SELF-CARE Condition: Stable Instructions (If sedation given, give patient instructions): Corneal Abrasion (ED), Conjunctivitis (ED) Additional Instructions: Make sure that you wash your hands frequently. Apply eye ointment to your lower eye lid 4 times daily. Avoid bright sun exposure. Do not scratch or rub your eyes. Follow-up with your PCP for a recheck on Monday. Return to the emergency department with any new, worsening, or concerning symptoms. Prescriptions: Erythromycin Ophth Oint [Romycin Ophth Oint] 1 applic RIGHT EYE QID 5 Days #3.5 gm Is patient prescribed a controlled substance at d/c from ED?: No Referrals: None,Stated [Primary Care Provider] - 1-2 days Time of Disposition: 02:01
--- NOTE | 2022-08-26 23:51 | XR ---
EXAMINATION TYPE: XR chest 2V DATE OF EXAM: 08/26/2022 COMPARISON: 07/25/2022 HISTORY: Difficulty breathing TECHNIQUE: 2 view FINDINGS: Heart and mediastinum are normal. Lungs are clear. Diaphragm is normal. Bony thorax is inta ct. IMPRESSION: Normal chest. There is clearing of some mild right-sided perihilar infiltrate compared to old exam.
[2022-08-27 00:16] VITALS: PULSE 94
[2022-08-27] MEDS ORDERED: ERYTHROMYCIN 5 MG/GM OPHTH OINT 3.5 GM TUBE RIGHT EYE STA (01:56)
== END 2022-08-27 02:18 | disposition home or self-care (01) ==
LOC: EC 19:49
DX: S05.02XA Injury of conjunctiva and corneal abrasion without foreign body, left eye, initial encounter (principal); H10.31 Unspecified acute conjunctivitis, right eye; J45.909 Unspecified asthma, uncomplicated; F41.9 Anxiety disorder, unspecified; F31.9 Bipolar disorder, unspecified; F17.200 Nicotine dependence, unspecified, uncomplicated; F12.90 Cannabis use, unspecified, uncomplicated; Z91.040 Latex allergy status; Z88.2 Allergy status to sulfonamides; Z79.899 Other long term (current) drug therapy; Z79.51 Long term (current) use of inhaled steroids; X58.XXXA Exposure to other specified factors, initial encounter
CPT/HCPCS: 71046; 94640; 99284

== ENCOUNTER 2022-10-30 06:33 | Emergency (ER) | payer OTHER ==
[2022-10-30 06:40] VITALS: TEMP 98.7
[2022-10-30] MEDS ORDERED: IPRATROPIUM-ALBUTEROL 3 ML NEB INHALATION STA (06:53)
--- NOTE | 2022-10-30 07:02 | ED ---
URI HPI - General Chief Complaint: Upper Respiratory Infection Stated Complaint: Sore Throat Time Seen by Provider: 10/30/22 06:43 Source: patient, RN notes reviewed Mode of arrival: ambulatory Limitations: no limitations - History of Present Illness Initial Comments: 37-year-old male presents emergency Department chief complaint of cough and cold-like symptoms. Patient states that he's had some on-and-off issues last several weeks was states it's worse the last few days. Patient states he ran out of his DuoNeb treatments. Patient does have underlying asthma. Patient complains of increased nasal congestion, possible fever, shortness of breath and loss of his voice. Patient states that he also is coughing up some white foam- like stuff. Patient states he does use Dulera his notice a little coating in his mouth. Patient denies nausea vomiting diarrhea constipation. Patient denies any other associated symptoms. - Related Data Home Medications Medication Instructions Recorded Confirmed Albuterol Sulfate [Proair Hfa] 2 puff INHALATION RT-Q4H PRN 07/25/22 07/25/22 Ipratropium-Albuterol Nebulize 3 ml INHALATION RT-QID PRN 07/25/22 07/25/22 [Duoneb 0.5 mg-3 mg/3 ml Soln] Mometasone/Formoterol [Dulera 200 2 puff INHALATION RT-BID 07/25/22 07/25/22 Mcg-5 Mcg Inhaler] Omeprazole [PriLOSEC] 20 mg PO DAILY 07/25/22 07/25/22 predniSONE 50 mg PO DAILY 07/25/22 07/25/22 Previous Rx's Medication Instructions Recorded Doxycycline [Vibramycin] 100 mg PO BID 5 Days #10 capsule 07/25/22 Ipratropium-Albuterol Nebulize 3 ml INHALATION Q4H PRN #90 ml 07/25/22 [Duoneb 0.5 mg-3 mg/3 ml Soln] predniSONE 50 mg PO QAM 5 Days #5 tablet 07/25/22 Erythromycin Ophth Oint [Romycin 1 applic RIGHT EYE QID 5 Days #3.5 08/27/22 Ophth Oint] gm Azithromycin [Zithromax Z Pack] 0 tab PO DIRECTED #6 tab 10/30/22 Ipratropium-Albuterol Nebulize 3 ml INHALATION QID #25 each 10/30/22 [Duoneb 0.5 mg-3 mg/3 ml Soln] Nystatin 100,000 Unit/ml Susp 5 ml PO QID #200 ml 10/30/22 [Mycostatin Oral Susp] predniSONE 50 mg PO DAILY #5 tab 10/30/22 Allergies Allergy/AdvReac Type Severity Reaction Status Date / Time latex Allergy Swelling @ Verified 10/30/22 06:40 contact methylphenidate Allergy Unknown Verified 10/30/22 06:40 [From Ritalin] Sulfa (Sulfonamide Allergy Unknown Verified 10/30/22 06:40 Antibiotics) Review of Systems ROS Statement: Those systems with pertinent positive or pertinent negative responses have been documented in the HPI. ROS Other: All systems not noted in ROS Statement are negative. 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 Absent: scleral icterus, conjunctival injection, periorbital swelling ENT exam: Present: normal exam, normal oropharynx, mucous membranes moist Neck exam: Present: normal inspection, full ROM. Absent: tenderness, meningismus, lymphadenopathy Respiratory exam: Present: wheezes. Absent: normal lung sounds bilaterally, respiratory distress, rales, rhonchi, stridor Cardiovascular Exam: Present: regular rate, normal rhythm, normal heart sounds. Absent: systolic murmur, diastolic murmur, rubs, gallop, clicks Neurological exam: Present: alert Skin exam: Present: warm, dry, intact, normal color. Absent: rash Course Vital Signs 10/30/22 06:38 Temperature 98.7 F Pulse Rate 99 Respiratory 18 Rate Blood Pressure 153/93 O2 Sat by Pulse 93 L Oximetry Medical Decision Making - Medical Decision Making Was pt. sent in by a medical professional or institution? @ -no Did you speak to anyone other than the patient for history? @ -no Did you review nursing and triage notes? @ -agree and reviewed Were old charts reviewed? @ -no Differential Diagnosis? @ -COVID-19, influenza, RSV, upper respiratory infection, pneumonia EKG interpreted by me (3pts min.)? @ -no X-rays interpreted by me (1pt min.)? @ -Chest x-ray shows subtle opacities concerning for atypical pneumonia CT interpreted by me (1pt min.)? @ -no U/S interpreted by me (1pt. min.)? @ -no What testing was considered but not performed? (CT, X-rays, U/S, labs)? Why? @ no What meds were considered but not given? Why? @ -no Did you discuss the management of the patient with other professionals? @ -no Did you reconcile home meds? @ -no Was smoking cessation discussed for >3mins.? @ -I discussed smoking cessation for greater than 3 minutes. The risk of smoking were discussed with the patient including but not limited to risks of cancer, stroke, coronary artery disease and COPD. Also discussed with patient were multiple methods of quitting smoking. Lastly we discussed the financial cost of smoking. Was critical care preformed (if so, how long)? @ -No Were there social determinants of health that impacted care today? How? (Homelessness, low income, unemployed, alcoholism, drug addiction, transportation, low edu. Level, literacy, decrease access to med. care, [facility], rehab)? @ -no Was there de-escalation of care discussed even if they declined? (Discuss DNR or withdrawal of care, Hospice)? @ -no What co-morbidities impacted this encounter? (DM, HTN, Smoking, COPD, CAD, Cancer, CVA, Hep., AIDS, mental health diagnosis, sleep apnea, morbid obesity)? @ -Asthma Was patient admitted / discharged? @ -Discharged Undiagnosed new problem with uncertain prognosis? @ -No Drug Therapy requiring intensive monitoring for toxicity (Heparin, Nitro, Insulin, Cardizem)? @ -no Were any procedures done? @ -no Diagnosis/symptom? @ -Atypical pneumonia Acute, or Chronic, or Acute on Chronic? @ -Acute Uncomplicated (without systemic symptoms) or Complicated (systemic symptoms)? @ -Uncomplicated Side effects of treatment? @ -No Exacerbation, Progression, or Severe Exacerbation] @ -non Poses a threat to life or bodily function? @ no Diagnosis/symptom? @ -Asthma exacerbation Acute, or Chronic, or Acute on Chronic? @ acute Uncomplicated (without systemic symptoms) or Complicated (systemic symptoms)? @ -Uncomplicated Side effects of treatment? @ -no Exacerbation, Progression, or Severe Exacerbation] @ -Exacerbation Poses a threat to life or bodily function? @ -no 37-year-old male presented for URI symptoms. Chest x-ray showed subtle atypical morning type changes patient was given DuoNeb treatment greatly improved after breathing treatment. Patient we discharged on antibiotics, steroids patient did have some he said patches in the posterior pharynx will be discharged on nystatin return parameters were discussed. - Lab Data Lab Results 10/30/22 Range/Units 06:49 Influenza Type A (PCR) Not Detected (Not Detectd) Influenza Type B (PCR) Not Detected (Not Detectd) RSV (PCR) Not Detected (Not Detectd) SARS-CoV-2 (PCR) Not Detected (Not Detectd) Disposition Clinical Impression: Atypical pneumonia, Asthma exacerbation Disposition: HOME SELF-CARE Condition: Stable Instructions (If sedation given, give patient instructions): Pneumonia (ED) Additional Instructions: Please return to the Emergency Department if symptoms worsen or any other concerns. Prescriptions: Ipratropium-Albuterol Nebulize [Duoneb 0.5 mg-3 mg/3 ml Soln] 3 ml INHALATION QID #25 each Nystatin 100,000 Unit/ml Susp [Mycostatin Oral Susp] 5 ml PO QID #200 ml predniSONE 50 mg PO DAILY #5 tab Azithromycin [Zithromax Z Pack] 0 tab PO DIRECTED #6 tab Is patient prescribed a controlled substance at d/c from ED?: No Referrals: Kaitlyn Christensen MD [Primary Care Provider] - 1-2 days Time of Disposition: 08:11
--- NOTE | 2022-10-30 07:28 | XR ---
EXAMINATION TYPE: XR chest 2V DATE OF EXAM: 10/30/2022 7:18 AM COMPARISON: Chest radiographs from 08/26/2022 TECHNIQUE: XR chest 2V Frontal and lateral views of the chest. CLINICAL INDICATION:Male, 37 years old with history of sob; FINDINGS: Lungs/Pleura: Scattered subtle reticular and hazy opacities. No evidence of pneumothorax, focal conso lidation or pleural effusion. Pulmonary vascularity: Unremarkable. Heart/mediastinum: Cardiomediastinal silhouette is unremarkable. Musculoskeletal: No acute osseous pathology. Other findings: None IMPRESSION: Subtle scattered opacities which may represent an atypical pneumonia.
[2022-10-30 08:27] VITALS: BP 122/78
[2022-10-30 08:33] VITALS: PULSE 88; RESP 22
== END 2022-10-30 08:38 | disposition home or self-care (01) ==
LOC: EC 06:33
DX: J18.9 Pneumonia, unspecified organism (principal); J44.1 Chronic obstructive pulmonary disease with (acute) exacerbation; F12.90 Cannabis use, unspecified, uncomplicated; F17.200 Nicotine dependence, unspecified, uncomplicated; F41.9 Anxiety disorder, unspecified; F31.9 Bipolar disorder, unspecified; Z79.899 Other long term (current) drug therapy; Z91.040 Latex allergy status; Z88.8 Allergy status to other drugs, medicaments and biological substances; Z88.2 Allergy status to sulfonamides; Z20.822 Contact with and (suspected) exposure to COVID-19
CPT/HCPCS: 71046; 87636; 94640; 99283

== ENCOUNTER → 2023-07-09 | Outpatient (CLI) | payer OTHER | END | disposition home or self-care (01) | LOC: LABMAIN 11:03 | PROVIDERS: ATTEND Family Medicine | DX: Z53.9 Procedure and treatment not carried out, unspecified reason (principal) ==

== ENCOUNTER 2024-03-06 08:29 | Emergency (ER) | payer OTHER ==
--- NOTE | 2024-03-06 09:04 | ED ---
Nausea/Vomiting/Diarrhea HPI - General Chief complaint: Nausea/Vomiting/Diarrhea Stated complaint: N/V/D Time Seen by Provider: 03/06/24 08:32 Source: patient, RN notes reviewed Mode of arrival: ambulatory Limitations: no limitations - History of Present Illness Initial comments: 38-year-old male presents emergency department chief complaint of nausea vo miting diarrhea symptoms started abruptly patient states he has been throughout the night he states he is having bile emesis he denies any localized abdominal pain he states his abdomen is sore from his multiple episodes of emesis had a prior cholecystectomy no reports of fever no sick contacts. Patient has no dysuria he hates his diarrhea is very loose, watery. No recent antibiotic use no recent traveling. - Related Data Home Medications Medication Instructions Recorded Confirmed Albuterol Sulfate [Proair Hfa] 2 puff INHALATION RT-Q4H PRN 07/25/22 07/25/22 Ipratropium-Albuterol Nebulize 3 ml INHALATION RT-QID PRN 07/25/22 07/25/22 [Duoneb 0.5 mg-3 mg/3 ml Soln] Mometasone/Formoterol [Dulera 200 2 puff INHALATION RT-BID 07/25/22 07/25/22 Mcg-5 Mcg Inhaler] Omeprazole [PriLOSEC] 20 mg PO DAILY 07/25/22 07/25/22 predniSONE 50 mg PO DAILY 07/25/22 07/25/22 Previous Rx's Medication Instructions Recorded Doxycycline [Vibramycin] 100 mg PO BID 5 Days #10 capsule 07/25/22 Ipratropium-Albuterol Nebulize 3 ml INHALATION Q4H PRN #90 ml 07/25/22 [Duoneb 0.5 mg-3 mg/3 ml Soln] predniSONE 50 mg PO QAM 5 Days #5 tablet 07/25/22 Erythromycin Ophth Oint [Romycin 1 applic RIGHT EYE QID 5 Days #3.5 08/27/22 Ophth Oint] gm Azithromycin [Zithromax Z Pack] 0 tab PO DIRECTED #6 tab 10/30/22 Ipratropium-Albuterol Nebulize 3 ml INHALATION QID #25 each 10/30/22 [Duoneb 0.5 mg-3 mg/3 ml Soln] Nystatin 100,000 Unit/ml Susp 5 ml PO QID #200 ml 10/30/22 [Mycostatin Oral Susp] predniSONE 50 mg PO DAILY #5 tab 10/30/22 Ondansetron Odt [Zofran Odt] 4 mg PO Q8HR PRN #10 tab 03/06/24 Allergies Allergy/AdvReac Type Severity Reaction Status Date / Time latex Allergy Swelling @ Verified 03/06/24 08:33 contact methylphenidate Allergy Unknown Verified 03/06/24 08:33 [From Ritalin] Sulfa (Sulfonamide Allergy Unknown Verified 03/06/24 08:33 Antibiotics) Review of Systems ROS Statement: Those systems with pertinent positive or pertinent negative responses have been documented in the HPI. ROS Other: All systems not noted in ROS Statement are negative. Past Medical History Past Medical History: Asthma Additional Past Medical History / Comment(s): multiple personality disorder History of Any Multi-Drug Resistant Organisms: None Reported Past Surgical History: Orthopedic Surgery Past Psychological History: ADD/ADHD, Anxiety, Bipolar, Schizoaffective Disorder Smoking Status: Vaper Past Alcohol Use History: Occasional Past Drug Use History: Marijuana General Exam Limitations: no limitations General appearance: alert, in no apparent distress Head exam: Present: atraumatic, normocephalic, normal inspection Eye exam: Present: normal appearance, PERRL, EOMI. Absent: scleral icterus, conjunctival injection, periorbital swelling ENT exam: Present: normal exam, normal oropharynx, mucous membranes moist Neck exam: Present: normal inspection, full ROM. Absent: tenderness, meningismus, lymphadenopathy Respiratory exam: Present: normal lung sounds bilaterally. Absent: respiratory distress, wheezes, rales, rhonchi, stridor Cardiovascular Exam: Present: regular rate, normal rhythm, normal heart sounds. Absent: systolic murmur, diastolic murmur, rubs, gallop, clicks GI/Abdominal exam: Present: soft, tenderness, normal bowel sounds. Absent: distended, guarding, rebound, rigid Back exam: Absent: CVA tenderness (R), CVA tenderness (L) Neurological exam: Present: alert Course Vital Signs 03/06/24 03/06/24 03/06/24 08:30 10:03 11:52 Temperature 98.2 F 99.2 F 99.1 F Pulse Rate 105 H 90 95 Respiratory 20 20 20 Rate Blood Pressure 135/98 140/76 126/85 O2 Sat by Pulse 95 100 98 Oximetry 03/06/24 13:19 Temperature 98.9 F Pulse Rate 92 Respiratory 18 Rate Blood Pressure 128/87 O2 Sat by Pulse 99 Oximetry Medical Decision Making - Medical Decision Making Was pt. sent in by a medical professional or institution (LOYD Horner, FINANCIAL AID MANAGER, urgent care, hospital, or halfway...) When possible be specific @ -No Did you speak to anyone other than the patient for history (EMS, parent, family, police, friend...)? What history was obtained from this source @ -No Did you review nursing and triage notes (agree or disagree)? Why? @ -I reviewed and agree with nursing and triage notes Were old charts reviewed (outside hosp., previous admission, EMS record, old EKG, old radiological studies, urgent care reports/EKG's, halfway records)? Report findings @ -No old charts were reviewed Differential Diagnosis (chest pain, altered mental status, abdominal pain women, abdominal pain men, vaginal bleeding, weakness, fever, dyspnea, syncope, headache, dizziness, GI bleed, back pain, seizure, CVA, palpatations, mental health, musculoskeletal)? @ -Differential Abdominal Pain Men: Appendicitis, cholecystitis, diverticulosis, ischemic bowel, pancreatitis, hepatitis, UTI, gastroenteritis, AAA, incarcerated hernia, bowel obstruction, constipation, inflammatory bowel, hepatitis, peptic ulcer disease, splenic infarction, perforated viscus, testicular torsion, this is not meant to be an all-inclusive list EKG interpreted by me (3pts min.). @ -None X-rays interpreted by me (1pt min.). @ -None done CT interpreted by me (1pt min.). @ -CT abdomen pelvis showing no acute intra-abdominal process U/S interpreted by me (1pt. min.). @ -None done What testing was considered but not performed or refused? (CT, X-rays, U/S, labs)? Why? @ -None What meds were considered but not given or refused? Why? @ -None Did you discuss the management of the patient with other professionals (professionals i.e. LOYD Horner, FINANCIAL AID MANAGER, lab, RT, psych nurse, social sciences professor, ingot weigher, teacher, environmental conservation officer, residential case manager)? Give summary @ -No Was smoking cessation discussed for >3mins.? @ -No Was critical care preformed (if so, how long)? @ -No Were there social determinants of health that impacted care today? How? (Homelessness, low income, unemployed, alcoholism, drug addiction, transportation, low edu. Level, literacy, decrease access to med. care, usp, rehab)? @ -No Was there de-escalation of care discussed even if they declined (Discuss DNR or withdrawal of care, Hospice)? DNR status @ -No What co-morbidities impacted this encounter? (DM, HTN, Smoking, COPD, CAD, Cancer, CVA, ARF, Chemo, Hep., AIDS, mental health diagnosis, sleep apnea, morbid obesity)? @ -None Was patient admitted / discharged? Hospital course, mention meds given and route, prescriptions, significant lab abnormalities, going to OR and other pertinent info. @ -Discharged Patient presented for nausea vomiting diarrhea initially thought is related to viral illness patient did have significant leukocytosis and CT was obtained CT did not reveal any acute findings patient felt improved with no localized tenderness and vitals are stable discharged with antiemetics Undiagnosed new problem with uncertain prognosis? @ -No Drug Therapy requiring intensive monitoring for toxicity (Heparin, Nitro, Insulin, Cardizem)? @ -No Were any procedures done? @ -No Diagnosis/symptom? @ -Gastroenteritis Acute, or Chronic, or Acute on Chronic? @ -Acute note Uncomplicated (without systemic symptoms) or Complicated (systemic symptoms)? @ -Uncomplicated Side effects of treatment? @ -No Exacerbation, Progression, or Severe Exacerbation? @ -No Poses a threat to life or bodily function? How? (Chest pain, [place], GA, pneumonia, PE, COPD, DKA, ARF, appy, cholecystitis, CVA, Diverticulitis, Homicidal, Suicidal, threat to staff... and all critical care pts) @ -No - Lab Data Result diagrams: 03/06/24 09:08 03/06/24 10:27 Lab Results 03/06/24 03/06/24 Range/Units 09:08 10:27 WBC 25.1 H (3.8-10.6) k/uL RBC 5.10 (4.30-5.90) m/uL Hgb 15.9 (13.0-17.5) gm/dL Hct 48.0 (39.0-53.0) % MCV 94.1 (80.0-100.0) fL MCH 31.2 (25.0-35.0) pg MCHC 33.2 (31.0-37.0) g/dL RDW 13.5 (11.5-15.5) % Plt Count 316 (150-450) k/uL MPV 8.0 Neutrophils % (Manual) 89 % Lymphocytes % (Manual) 7 % Monocytes % (Manual) 4 % Neutrophils # (Manual) 22.34 H (1.3-7.7) k/uL Lymphocytes # (Manual) 1.76 (1.0-4.8) k/uL Monocytes # (Manual) 1.00 (0-1.0) k/uL Nucleated RBCs 0 (0-0) /100 WBC Manual Slide Review Performed RBC Morphology Normal Sodium 138 (137-145) mmol/L Potassium 3.5 (3.5-5.1) mmol/L Chloride 107 (98-107) mmol/L Carbon Dioxide 23 (22-30) mmol/L Anion Gap 8 mmol/L BUN 14 (9-20) mg/dL Creatinine 0.84 (0.66-1.25) mg/dL Est GFR (CKD-EPI)AfAm >90 (>60 ml/min/1.73 sqM) Est GFR (CKD-EPI)NonAf >90 (>60 ml/min/1.73 sqM) Glucose 91 (74-99) mg/dL Calcium 9.1 (8.4-10.2) mg/dL Total Bilirubin 1.5 H (0.2-1.3) mg/dL AST 33 (17-59) U/L ALT 30 (4-49) U/L Alkaline Phosphatase 77 (38-126) U/L Total Protein 7.1 (6.3-8.2) g/dL Albumin 4.3 (3.5-5.0) g/dL Lipase 40 (23-300) U/L Disposition Clinical Impression: Gastroenteritis Disposition: HOME SELF-CARE Condition: Stable Instructions (If sedation given, give patient instructions): Gastroenteritis (ED) Additional Instructions: Please return to the Emergency Department if symptoms worsen or any other concerns. Prescriptions: Ondansetron Odt [Zofran Odt] 4 mg PO Q8HR PRN #10 tab PRN Reason: Nausea Is patient prescribed a controlled substance at d/c from ED?: No Referrals: Kaitlyn Christensen MD [Primary Care Provider] - 1-2 days Time of Disposition: 13:04
[2024-03-06] MEDS: SODIUM CHLORIDE 0.9% 2,000 ML IV STA (09:09)
[2024-03-06] MEDS: FAMOTIDINE 20 MG/2 ML VIAL IV STA (09:17)
[2024-03-06] MEDS: diphenhydrAMINE 50 MG/ML 1 ML VIAL IVP STA (09:19)
[2024-03-06] MEDS: METOCLOPRAMIDE 5 MG/ML 2 ML VIAL IVP STA (09:21)
[2024-03-06 10:07] LABS: HGB 15.9 gm/dL (13.0-17.5); MCH 31.2 pg (25.0-35.0); MCHC 33.2 g/dL (31.0-37.0); MCV 94.1 fL (80.0-100.0); Platelet Count 316 k/uL (150-450); RDW 13.5 % (11.5-15.5)
[2024-03-06 10:08] LABS: WBC 25.1 k/uL (3.8-10.6)
[2024-03-06 10:48] LABS: Lymphocytes # (M) 1.76 k/uL (1.0-4.8); Neutrophils # (M) 22.34 k/uL (1.3-7.7); Neutrophils % (M) 89 %; Nucleated Red Blood Cells 0 /100 WBC (0-0); RBC Morphology Normal; Total Cells Counted 100
[2024-03-06 11:10] LABS: ALT 30 U/L (4-49); AST 33 U/L (17-59); African American GFR (CKD) >90 (>60 ml/min/1.73 sqM); Albumin 4.3 g/dL (3.5-5.0); Alkaline Phosphatase 77 U/L (38-126); Anion Gap 8 mmol/L; Blood Urea Nitrogen 14 mg/dL (9-20); Calcium 9.1 mg/dL (8.4-10.2); Carbon Dioxide 23 mmol/L (22-30); Chloride 107 mmol/L (98-107); Glucose 91 mg/dL (74-99); Lipase 40 U/L (23-300); Non-African American GFR(CKD) >90 (>60 ml/min/1.73 sqM); Potassium 3.5 mmol/L (3.5-5.1); Sodium 138 mmol/L (137-145); Total Bilirubin 1.5 mg/dL (0.2-1.3); Total Protein 7.1 g/dL (6.3-8.2)
--- NOTE | 2024-03-06 12:44 | CT ---
EXAMINATION TYPE: CT abdomen pelvis w con CT DLP: 3248.5 mGycm, Automated exposure control for dose reduction was used. DATE OF EXAM: 03/06/2024 11:43 AM COMPARISON: CT abdomen pelvis most recent from CLINICAL INDICATION:Male, 38 years old with history of abd pain; nausea, body and diarrhea. ABDOMINAL PAIN AFTER FOOD POISON TECHNIQUE: Axial CT abdomen pelvis w con;Sagittal and coronal reformats were created on a separate w orkstation. Contrast used:100ML mL of Isovue 300 with IV Contrast, (none if empty) Oral contrast used: without Oral Contrast (none if empty) FINDINGS: LOWER CHEST: Unremarkable ABDOMEN LIVER: Unremarkable GALLBLADDER AND BILE DUCTS: Cholecystectomy clips in the gallbladder fossa. PANCREAS: Unremarkable. SPLEEN: Unremarkable. ADRENAL GLANDS: Unremarkable. KIDNEYS AND URETERS: No evidence of hydronephrosis or renal calculus. The ureters are unremarkable. PELVIS BLADDER: Unremarkable REPRODUCTIVE: Unremarkable. ABDOMEN & PELVIS STOMACH AND BOWEL: Stomach and duodenum are unremarkable. No evidence of bowel obstruction. PERITONEUM/RETROPERITONEUM: No evidence of pneumoperitoneum or free fluid. VASCULATURE: No evidence of aortic aneurysm. MUSCULOSKELETAL: No acute osseous abnormalities LYMPH NODES: No gross evidence for lymphadenopathy. SOFT TISSUE/ABDOMINAL WALL: Unremarkable IMPRESSION: 1. No CT evidence of an acute process.
[2024-03-06 13:42] VITALS: BP 128/87; PULSE 92; RESP 18; TEMP 98.9
== END 2024-03-06 13:19 | disposition home or self-care (01) ==
LOC: EC 08:29
DX: K52.9 Noninfective gastroenteritis and colitis, unspecified (principal); F17.290 Nicotine dependence, other tobacco product, uncomplicated; F12.90 Cannabis use, unspecified, uncomplicated; Z91.040 Latex allergy status; Z88.2 Allergy status to sulfonamides; Z88.1 Allergy status to other antibiotic agents
CPT/HCPCS: 36415; 80053; 83690; 85025; 74177; 99284; 96374; 96375 ×2; 96361 ×2; J1200; J2765; J3490

== ENCOUNTER → 2024-04-11 | Outpatient (CLI) | payer OTHER ==
--- NOTE | 2024-04-11 17:42 | US ---
EXAMINATION TYPE: US scrotum with doppler. Grayscale and color Doppler Duplex imaging performed of david sagastume scrotum. DATE OF EXAM: 04/11/2024 COMPARISON: CT 2023 CLINICAL INDICATION: Male, 38 years old with history of N50.812 LEFT TESTICULAR PAIN; Left testicular pain x 1 week EXAM MEASUREMENTS: TESTICLES: Right Testicle: 4.4 x 2.7 x 3.0 cm Left Testicle: 4.6 x 2.6 x 3.1 cm EPIDIDYMIS HEAD: Right Epididymis: 1.3 cm Left Epididymis: 1.1 cm Doppler performed to assess for testicular vascularity; good bilateral color flow and waveforms are s een. There is no evidence of testicular torsion. Presence of hydroceles: yes - right 3.6cm, left 4.0cm Presence of varicoceles: no IMPRESSION: 1. No testicular mass or testicular torsion. 2. No epididymal abnormalities. 3. Small hydroceles bilaterally 4. No varicoceles.
== END | disposition home or self-care (01) ==
LOC: RADUSWWP 13:23
PROVIDERS: ATTEND Family Medicine
DX: N43.3 Hydrocele, unspecified (principal); N50.812 Left testicular pain
CPT/HCPCS: 76870; 93975